=== PATIENT | female | born 1960 | race Caucasian/White ===

== ENCOUNTER → 2017-10-07 16:00 | Outpatient (CLI) | payer BC, SELFPAY ==
--- NOTE | 2017-10-07 10:22 | HPBI_ITS ---
MAMMOGRAPHY - BILATERAL SCREENING REASON FOR EXAM: Female, 57 years old. Routine annual screening examination. PERTINENT HISTORY: Grandmother with breast cancer. TECHNIQUE: Digital bilateral breast marta (3D mammographic acquisition) in the CC and MLO projections. 2-D mediolateral oblique (MLO) and craniocaudad (CC) views of both breasts were obtained. CAD: Full Field Digital Mammography with Computer Added Detection was performed. COMPARISON: Comparison is made with prior study dated October 06, 2016 and October 04, 2015. FINDINGS: Breast Composition: The breasts are almost entirely fatty. There are no dominant masses or suspicious calcifications. No other significant abnormalities are identified. There has been no significant change since the prior study. HPBI/SCREENING MAMM (CAD), BILAT IMPRESSION: Stable bilateral screening mammogram. Yearly follow-up mammogram recommended. (A) ASSESSMENT CATEGORY: BIRADS Category 1: Negative. A letter regarding these results will be sent to the patient by the facility within 30 days. Approximately 10% of breast cancers are not detected by mammography. A normal mammogram should not delay biopsy of a clinically suspicious abnormality. [id number] Electronically Signed: Wally Albrecht MD at 8:14 EST Tel [phone], Service support ,
--- OUTSIDE RECORDS SUMMARY | 2017-11-17 07:39 | XMS RPT_ITS ---
:1960 Author Organization OHIP Care Team Providers Name Role Phone Berhane Diaz Attending Unavailable Berhane Diaz Primary Care Unavailable Monae Blanco Attending Unavailable Berhane Diaz Primary Care Unavailable Monae Blanco Attending Unavailable Berhane Diaz Primary Care Unavailable Patrick Amin Attending Unavailable Berhane Diaz Referring Unavailable Berhane Diaz Primary Care Unavailable Dr. Dewey Driver Attending Unavailable *SELF, REFERRED Referring Unavailable Fermin Delaney Primary Care Unavailable Rakan, Dr. Nunu Leyva Attending Unavailable Neisha, Dr. Dewey Buchanan Referring Unavailable PrattFermin Primary Care Unavailable PROBLEMS PROBLEMS DATE TYPE CONDITION / CODE ATTENDING STATUS SOURCE 11/17/2017 Unknown Z12.31 - Encounter Francis Active [place] for screening [facility] mammogram for Hospital malignant neoplasm Repository of breast / Z12.31(ICD-10) 07/31/2017 Unknown ENCNTR FOR SECURITY SITE SUPERVISOR EXAM Francis Active [facility] (GENERAL) (ROUTINE) [facility] W/O ABN FINDINGS / Hospital Z01.419(ICD-10) Repository 07/31/2017 Unknown ENCOUNTER FOR [facility] Active [place] SCREENING FOR HUMAN [facility] PAPILLOMAVIRUS (HPV) Hospital / Z11.51(ICD-10) Repository 05/21/2017 Unknown ENCOUNTER FOR Berhane Diaz Active [place] SCREENING FOR LIPOID [facility] DISORDERS / Hospital Z13.220(ICD-10) Repository 05/21/2017 Unknown ENCOUNTER FOR JoeBerhane house Active [place] SCREENING FOR [facility] DIABETES MELLITUS / Hospital Z13.1(ICD-10) Repository 05/21/2017 Unknown ANEMIA, UNSPECIFIED JoeBerhane Active [place] / D64.9(ICD-10) [facility] Hospital Repository PROCEDURES PROCEDURES No Procedure Records FoundRESULTS RESULTS URGENT CARE VISIT Observed: 11/11/2017 Status: F Source: [place] RE[place] 12:16 PM [facility] REPOSITORY Now [address] [id number] VISITDate of Service: 10/09/17MR#: [id number] Acct: [id number]: OPHELIA VARMA Rep #: [id number]: 1960 Provider: Patrick Vega/Sex: 57/F [place] [facility] [place]Status: SignedIntakeVital Signs10/09/17 Height 5 ft 1 in10/09/17 Weight: 228 lb10/09/17 Body Mass Index (BMI) 43.0IntakeVisit Reasons: chest congestionInterpreter Required: NoAccompanied by: SelfIs patient in pain?: NoAllergiescefaclor Allergy (Severe, Verified 10/09/17 07:46) Unknownclarithromycin Allergy (Severe, Verified 10/09/17 07:47)UnknownSulfa (Sulfonamide Antibiotics) Allergy (Severe, Verified 10/09/17 07:46)UnknownMedicationsdiphenhydramine 25 mg capsule 25 mg PO ONCE 10/09/17 [History Confirmed 10/09/17]ibuprofen 100 mg tablet PO 10/09/17 [History Confirmed 10/09/17]metronidazole 0.75 % topical gel 1 applic TOPICAL ONCE 10/09/17 [History Confirmed 10/09/17]selenium sulfide 2.5 % shampoo % TOPICAL 10/09/17 [History Confirmed 10/09/17]sumatriptan 100 mg tablet 100 mg PO ONCE 10/09/17 [History Confirmed 10/09/17]topiramate XR 200 mg capsule,extended release 24 hr 200 mg PO ONCE 10/09/17 [History Nbnmzbvky71/22/17]PFSHMedical History ( Reviewed 10/09/17 @ 07:53 by Berkley Clarke)history of uterine ablasion (Acute)Surgical History History of colonoscopy (Acute) Social HistorySmoking Status: Never smokeralcohol intake: neverHPIchest congestion:Details: OPHELIA VARMA, is a 57 F who presents to the office today for cough and nasalcongestion for the past 2 days. Patient is concerned for possible bronchitis or pneumonia asshe has had this in the past. She states that her cough has worsened over the past 2 days andshe feels as if it is in her chest currently. She denies chest pain or shortness of breath.She also denies any hemoptysis and describes her cough as dry and nonproductive. No fever,chills, sweats. No other associated symptoms or alleviating/aggravating factors.ROSConstConstitutional: No chills, fever(s), fatigue, abnormal sleep pattern or headache(s)ENTENT: Positive for nasal discharge and nasal congestion;no ear pain or headache(s)RespRespiratory: Positive for cough Cough: Yes non-productive;no shortness of breath or chest congestionCardioCardiology: No chest pain at rest, chest pain with exertion or shortness of breathSkinSkin: No wounds or lesionsNeuroNeurology: No behavioral changes, confusion or headache(s)PsychPsychiatric: No behavioral changes, No confusion, No abnormal sleep patternEndoEndocrine: No fatigueExamConstGeneral: cooperative, healthy appearingHENMTHead: normocephalic, atraumaticEars: hearing grossly normal bilaterally, TM abnormal retracted bilaterallyNose: nasal discharge clearFace and sinus: face symmetricEyesGeneral: appearance normal, both eyes and all related structuresPupils: PERRLRespEffort AND Inspection: normal respiratory effortAuscultation: Bilateral: Clear to AuscultationCardioRate: regular rateRhythm: regular rhythmHeart Sounds: S1 normal, S2 normalSkinGeneral: no rashes or lesions notedPsychAppearance: grossly normalAssessment AND PlanProblems1. URI, acute J06.9StatusAcutePlanEncouraged to get plenty of rest, drink lots of clear liquids, and use Tylenol or Ibuprofen(unless contraindicated) for fever and comfort. Patient also educated on other symptomaticmanagement techniques. To be seen in 7-10 days if no improvement; sooner if worsening ofsymptoms. Patient advised of potential red flags and when appropriate report to the ED.Patient verbalized understanding all the above.CodingLevel of Care CodeOff vis,new,level 3DiagnosesURI, acute J06.90/ 06/05 1614 <Electronically signed by Patrick SULLIVAN>Date Patrick Amin PACosigner Signature: Date (if applicable)CC: SCREENING MAMM (CAD), Observed: 10/07/2017 Status: F Source: [place] 10:22 AM [facility] RE[facility]ITORY [facility] [address] [place], [place] [address]AHNSKOLDV MAMM (CAD), BILATMR#: [id number] Acct: [id number]: OPHELIA VARMA Rep #: [id number]: 1960 F 57 From: Wally Albrecht MDPCP: Berhane Diaz Status: PRE CLIStudy: SCREENING MAMM (CAD), BILAT Date of Exam: 10/07/17Exam# [id number] Ordering Dr: Monae Blanco MDMAMMOGRAPHY - BILATERAL SCREENINGREASON FOR EXAM: Female, 57 years old. Routine annual screeningexamination.PERTINENT HISTORY: Grandmother with breast cancer.TECHNIQUE: Digital bilateral breast marta (3D mammographic acquisition) inthe CC and MLO projections. 2-D mediolateral oblique (MLO) and craniocaudad(CC) views of both breasts were obtained. CAD: Full Field DigitalMammography with Computer Added Detection was performed.COMPARISON: Comparison is made with prior study dated October 06, 2016and October 04, 2015. FINDINGS:Breast Composition: The breasts are almost entirely fatty.There are no dominant masses or suspicious calcifications.No other significant abnormalities are identified. There has been nosignificant change since the prior study. ORDER #: [id number] HPBI/SCREENING MAMM (CAD), BILATIMPRESSION:Stable bilateral screening mammogram. Yearly follow-up mammogramrecommended. (A) ASSESSMENT CATEGORY:BIRADS Category 1: Negative. A letter regarding these results will besent to the patient by the facility within 30 days.Approximately 10% of breast cancers are not detected by mammography. 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 Electronically Signed Out by LENARD JERRY M.D. Electronically SignedOut By LENARD JERRY MD/[facility] Microscopic Description:Microscopic analysis shows a symmetric, papular proliferation of blandmelanocytes in dermis. Dermal melanocytes mature with increasing depth indermis and show no cytologic atypia. Clinical History:R/O Atypia at congenital nevus. Shave Biopsy. ([facility]) Specimens Submitted As:A: SKIN, RIGHT LOW LATERAL BUTTOCK Gross Description: Received in formalin is a oden-brown piece of skin measuring 3y4n7yl. Thespecimen is inked and embedded in toto.ink/09/02/2017 Performed By: #### D ####Dermatopathology PAP I-G HPV HI Collected: 07/27/2017 Status: F Source: [facility] 12:00 AM [facility] REPOSITORY Order Comment: CYTOLOGY INFORMATION:- CLINICAL INFORMATION: OTHER- DATE LMP/MENOPAUSE: LMP/ NOT GIVEN- COLLECTION VIAL: Thin Prep Vial- SECURITY SITE SUPERVISOR SOURCE: CERVICAL- COLLECTION TECHNIQUE: BRUSH ONLY/ CERVIX BROOM ONLYSpecimen Comment: [id number] Comment: No. of containers..01 ThinPrep Vial TYPE CODE TESTS RESULT OUT OF RANGE REFERENCE UNITS LAB L7400.0800 Normal . DIAGN Comment Result Comment: NEGATIVE FOR INTRAEPITHELIAL LESION AND MALIGNANCY. LAB L7400.0900 Normal . ADEQ Comment Result Comment: Satisfactory for evaluation. Endocervical and/or squamous metaplasticcells (endocervical component) are present. LAB L7400.1400 Normal . PERFORM Comment Result Comment: Kayla Mcmullen, Wash Driller (ASCP) LAB L7400.2575 Normal . TEST Comment METHOD Result Comment: This liquid based ThinPrep(R) pap test was screened withthe use of an image guided system. LAB L7400.2600 Normal . COMM . LAB L7400.2700 Normal . PAPSMR Comment Result Comment: The Pap smear is a screening test designed to aid in thedetection of premalignant and malignant conditions of theuterine cervix. It is not a diagnostic procedure andshould not be used as the sole means of detecting cervicalcancer. Both false-positive and false-negative reports dooccur. LAB L7400.2950 Normal Negative HPV Negative HC,HGH RISK Result Comment: This high-risk HPV test detects thirteen high-risk types(16/18/31/33/35/39/45/51/52/56/58/59/68) withoutdifferentiation.Performed at: - [facility] [id number] Director: Adore Gay MD, Phone: [phone] at:=G - [facility] [address] [id number] Director: Adore Gay MD, Phone: [phone] Performed By: #### L7400.0375 ####[facility] (refer to report for specific site) refer to report for address and phone number CBC W/DIFF, AUTOMATED Collected: 05/15/2017 Status: F Source: [place] 9:01 AM [facility] REPOSITORY TYPE CODE TESTS RESULT OUT OF RANGE REFERENCE UNITS LAB L100.1000 Normal 4.4-11.0 K/mm3 WBC 6.2 LAB L100.1200 Normal 4.2-5.4 M/mm3 RBC 4.25 LAB L100.1300 Low 12.0-15.0 g/dl HGB 11.7 LAB L100.1400 Normal 37-47 % HCT 37.1 LAB L100.1500 Normal 81-99 fL MCV 87.3 LAB L100.1600 Normal 27.0-32.0 pg MCH 27.5 LAB L100.1700 Low 32-36 g/gl MCHC 31.5 LAB L100.1810 High 11.6-14.6 % RDW 15.3 CV LAB L100.1820 High 35.1-43.9 fl RDW 48.5 SD LAB L100.1900 Normal 150-450 K/mm3 PLT 263 LAB L100.2000 Normal 6.2-12.0 fl MPV 11.9 LAB L100.2100 Normal 47-70 % NEUT% 62.6 LAB L100.2200 Normal 19-41 % LY% 28.1 LAB L100.2300 Normal 0-10 % MONO% 5.9 LAB L100.2400 Normal 0-5 % EO% 2.9 LAB L100.2500 Normal 0-1 % BASO% 0.3 LAB L100.2550 Normal 0.0-0.9 % IM 0.200 GRAN % Result Comment: IG% - Immature Granulocytes (promyelocytes, myelocytes andmetamyelocytes) > 1% indicates that a LEFT SHIFT is Present. LAB L100.2620 Normal 2.0-7.7 X10 3/uL Absolute Neut 3.9 LAB L100.2720 Normal 0.83-4.51 X10 3/ul Absolute Lymph 1.75 Performed By: #### L100.0100 ####[facility] [address] [place], [place], [address] LIPID PROFILE Collected: 05/15/2017 Status: F Source: [place] 9:01 AM [facility] REPOSITORY TYPE CODE TESTS RESULT OUT OF RANGE REFERENCE UNITS LAB L501.4900 Normal 200 mg/dL CHOL 161 Result Comment: <200 mg/dL Desirable 200-240 mg/dL Borderline >240 mg/dL High Risk LAB L501.5000 Normal mg/dL TRIG 89 Result Comment: The drugs N-Acetylcysteine and Metamizole may falsely deressthis assay.Serum Triglycerides Reference Interval Normal <150 mg/dL Borderline high 150 - 199 mg/ dL High 200 - 499 mg/dL Very High > ev=323 mg/dL LAB L501.6400 Normal mg/dL HDL 56 Result Comment: The drugs N-Acetylcysteine and Metamizole may falsely deressthis assay. Reference Range HDL <40 mg/dL Low HDL Cholesterol HDL >or=60 mg/dL High HDL Cholesterol LAB L501.6500 Normal 0-130 mg/dL LDL 87 LAB L501.6600 Normal 5-40 mg/dL VLDL 18 Performed By: #### L500.4100, L501.0100, L503.6150, L503.6550 ####[facility] [address] [place], [address] GLUCOSE Collected: 05/15/2017 Status: F Source: [place] 9:01 AM [facility] REPOSITORY TYPE CODE TESTS RESULT OUT OF RANGE REFERENCE UNITS LAB L501.0100 Normal 70-110 mg/dL GLU 94 Performed By: #### L500.4100, L501.0100, L503.6150, L503.6550 ####[facility] [address] [place], [address] IRON Collected: 05/15/2017 Status: F Source: [place] 9:01 AM [facility] REPOSITORY TYPE CODE TESTS RESULT OUT OF RANGE REFERENCE UNITS LAB L503.6150 Low 50-170 ug/dL IRON 49 Performed By: #### L500.4100, L501.0100, L503.6150, L503.6550 ####[facility] [address] [place], [address] FERRITIN Collected: 05/15/2017 Status: F Source: [place] 9:01 AM [facility] REPOSITORY TYPE CODE TESTS RESULT OUT OF RANGE REFERENCE UNITS LAB L503.6550 Normal 8-252 ng/mL FERRITIN 45 Performed By: #### L500.4100, L501.0100, L503.6150, L503.6550 ####[facility] [address] [place], [address] CNCO Observed: 04/14/2017 Status: COMPLETED Source: [place] 12:00 AM [facility] REPOSITORY Letter TextWooVirtua VoorheesDepartment of Obstetrics and [address] [place], [place] [address]Wdaxo: Sasherman Mcgowan [address]052 [facility] [address]Jddf 2016MRN: [id number] ,Due to unforeseen circumstances, there has been a change in the schedule Sangeeta Blanco M.D. Your original appointment scheduled for 07/27/17 hasbeen rescheduled to 07/23/17 at 3:50 p.m. If this is not convenient, pleasegive our office a call at [phone]. I apologize for any inconveniencethis may cause you.Sincerely,Department of Obstetrics and GynecologyFormerly [facility] ALLERGIES ALLERGIES DATE TYPE / CODE NAME / CODE REACTION SEVERITY SOURCE 10/09/2017 Drug Sulfa Unknown [facility] Allergy/4160 (Sulfonamide Hospital 25174(SNOMED Antibiotics)/ Repository CT) [id number](RX NORM) 10/09/2017 Drug cefaclor/F006 Unknown [facility] Allergy/4160 945758(RXNORM Hospital 02167(SNOMED ) Repository CT) 10/09/2017 Drug clarithromyci Unknown [facility] Allergy/4160 n/[id number]( Hospital 24570(SNOMED RXNORM) Repository CT) ENCOUNTERS ENCOUNTERS ADMIT/DISCHARGE ACCOUNT ADMITTING ENCOUNTER LOCATION SOURCE NUMBER CLASS 10/09/2017/10/09/20 [id number] Ambulatory BMSBuilding:Sobia Jim[address] [place] Repository 10/07/2017 [id number] [facility] ing:BI Repository 09/01/2017 [id number] Ambulatory [address] [place] [address] Repository 09/01/2017 [id number] Ambulatory [address] [place] [address] Repository 07/27/2017 [id number] [facility] ing:LABSPEC Repository 05/15/2017 [id number] [facility] ing:BFHLAB Repository PAYERS PAYERS ENCOUNTER GUARANTOR PAYER SUBSCRIBER SOURCE 10/09/2017 Ned Chawla Primary OPHELIA Roslyn [place] [id number] Insurance:ANTHEMPolic STEWARDDOB: [facility] y Number: [id number] [id number] Repository [address]Ino: (330) Date:0810-75-19BE [phone] () [id number], [place] [address]DI: 10/09/2017 Secondary NOT GIVENUNK Tino Insurance:SELF PAY [facility] Number: Effective Repository Date:2017-10-09 10/07/2017 Ned Chawla [facility] Tino [id number] Insurance:ANTHEMPolic STEWARDDOB: [facility] y Number: [id number], [place] [id number] Repository [address]Ouq: 330) Date:2762-97-55WV [phone] (HP) [id number], [place] [address]BL: 10/07/2017 [facility] Tino Insurance:SELF PAY [facility]: Effective Repository Date:2017-07-27 09/01/2017 [facility] STEWARDDOB: Insurance:AnthemPolic STEWARDDOB: Hospitals y Number: [id number] Repository [place] [id number] [place], [place] Date:Plan Name:[place], [place] [id number]: [id number]: (HP) (HP) 09/01/2017 [facility] Insurance:AnthemPolic STEWARDDOB: Hospitals y Number: [id number] Repository [id number] [place] Date:Plan Name:[place], [place] [id number]: (HP) 09/01/2017 [facility] STEWARDDOB: Insurance:AnthemPolic STEWARDDOB: Hospitals y Number: [id number] Repository [place] [id number], [place] Date:Plan Name:[place], [place] [id number]: [id number]: (HP) (HP) 09/01/2017 [facility] Insurance:AnthemPolic STEWARDDOB: Hospitals y Number: [id number] Repository [id number] [place] Date:Plan Name:[place] [id number]: () 07/27/2017 NED BERMUDEZRA Mcgowan Tino [id number] Insurance:ANTHEMPolic STEWARDDOB: [facility] y Number: [id number], [place] [id number] Repository [address]Lpq: (330) Date:5328-75-97NE [phone] () [id number] MORENO [address]ZT: 05/15/2017 NED Jiménez [id number] Insurance:ANTHEMPolic STEWARDDOB: [facility] y Number: [id number], [place] [id number] Repository [address]Fae: (330) Date:3467-27-36WD [phone] () [address]IWNJFBF, [place] [address]QY:
== END ==
PROVIDERS: Family Provider Family Medicine; PCP Family Medicine; Visit Provider Obstetrics & Gynecology
DX: Z12.31 Encounter for screening mammogram for malignant neoplasm of breast (principal)
CPT/HCPCS: 77063; 77067; G0202

== ENCOUNTER 2018-07-31 08:02 | Emergency (ER) | payer OTHER, SELFPAY ==
[2018-07-31 08:03] VITALS: BP 126/69; PULSE 82; RESP 18; TEMP 36.6; O2SAT 98; BMI 42.2
--- NOTE | 2018-07-31 08:30 | ED.VIS.GEN ---
History of Present Illness Chief Complaint: Itching Informant: Patient Onset: Weeks - 2 Context: Gradual Onset Timing: Continuous Quality: itchy Location: started on right forearm, now BUE, abd, chest Current Severity: Moderate Maximum Severity: Moderate Worsened by: nothing Relieved by: benadryl temporarily (itching improves, not rash) Associated Symptoms: none Narrative: Patient has an itchy rash started on her forearm. She states her had poison imtiaz after being in some weeds and at first she thought maybe she had it but states that it looks different and did not respond to hydrocortisone cream that she has been using for about 3 days now. Started around 2 weeks ago. Itchy, no pain, no systemic symptoms. No lesions in her mouth. She cannot recall anything that touched these areas that could have caused this. She is on generic topiramate for migraines, has been on it for a while but the pharmacy told her that she recently was given pills from a different pharmacist in charge owner about 2 or 3 weeks ago, and the pharmacist told her that there is a very slight chance that she could develop a rash as a result. She has not discontinued the medication, as she was told not to do so abruptly. - Past Medical History (1) Migraines Status: Chronic Past Medical History - Allergies and Home Meds Allergies/Adverse Reactions: Allergies cefaclor Allergy (Severe, Verified 07/31/18 08:07) Unknown clarithromycin Allergy (Severe, Verified 07/31/18 08:07) Unknown Sulfa (Sulfonamide Antibiotics) Allergy (Severe, Verified 07/31/18 08:07) Unknown Primary Care Physician: Berhane Diaz MD [Primary Care Provider] - Lives: Spouse/ Significant Other Smoking Status: Never smoker Alcohol: None Drugs: None Review of Systems General: Denies: Chills, Fever Respiratory: Denies: Dyspnea, Cough Gastrointestinal: Denies: Abdominal pain, Nausea, Vomiting, Diarrhea Musculoskeletal: Denies: Myalgias, Arthralgias, Swelling Skin: Reports: Rash. Denies: Abscess, Abrasions, Wounds Physical Exam Vital Signs/Narrative: Vital Signs Temp Pulse Resp BP Pulse Ox 07/31/18 08:03 97.9 F 82 18 126/69 H 98 Inital Vital Signs reviewed: Yes General: Well nourished, Well developed Head: Normocephalic, Atraumatic Eyes: Perrl, EOMI ENT: Moist mucous membranes - Without lesions, No rhinorrhea Neck: Supple, Nontender Skin: Normal color, Rash - Erythematous, almost consistent with coalescent fine urticaria on abdominal and chest herring, but more dry on forearms. No tenderness. No target lesions. No vesicles, drainage or discharge, or bullae. No petechiae/purpura. Neurological: Alert, Oriented x3, Cranial nerves II-XII grossly intact, Normal Strength, Normal Sensation, Normal Gait Psychological: Normal affect Diagnostic/Tx/Re-eval - Medical Decision Making We do not have a true Stringer lamp here. I think fungal infection is less likely given how diffuse it has become. There is a couple areas on her ankles where she has this as well, it looks more similar to the appearance of the rash on her forearms and her abdomen, but it all looks fairly similar. There is a chance it could be contact dermatitis. There is a chance it could be related to the topiramate that she recently had changed to a different pharmacist in charge owner. She is getting a new prescription from a new pharmacist in charge owner 2 days from now, she asked if it would be safe to discontinue her topiramate for today and tomorrow and I think that it would be. She does not take this for seizures. This is not consistent with Richard-River syndrome. I think this looks like a rash that will respond to steroids so we will place her on a taper and have her follow-up with her doctor and she is comfortable with this plan. ED Disposition - Plan for ED Patient: Disposition: Home or Assisted Living Chief Complaint: Itching Diagnosis: Dermatitis Instructions: ED Dermatitis Contact, ED Allergic Reaction General Other Prescriptions: Prednisone 10 mg PO UD #37 tab Referrals: Berhane Diaz MD [Primary Care Provider] - 3-5 Days if not improving
--- NOTE | 2018-07-31 08:35 | ED.DCSUM_ITS ---
History of Present Illness Chief Complaint: Itching Informant: Patient Onset: Weeks - 2 Context: Gradual Onset Timing: Continuous Quality: itchy Location: started on right forearm, now BUE, abd, chest Current Severity: Moderate Maximum Severity: Moderate Worsened by: nothing Relieved by: benadryl temporarily (itching improves, not rash) Associated Symptoms: none Narrative: Patient has an itchy rash started on her forearm. She states her had poison mitiaz after being in some weeds and at first she thought maybe she had it but states that it looks different and did not respond to hydrocortisone cream that she has been using for about 3 days now. Started around 2 weeks ago. Itchy, no pain, no systemic symptoms. No lesions in her mouth. She cannot recall anything that touched these areas that could have caused this. She is on generic topiramate for migraines, has been on it for a while but the pharmacy told her that she recently was given pills from a different sales marketing manager about 2 or 3 weeks ago, and the pharmacist told her that there is a very slight chance that she could develop a rash as a result. She has not discontinued the medication, as she was told not to do so abruptly. - Past Medical History (1) Migraines Status: Chronic Past Medical History - Allergies and Home Meds Allergies/Adverse Reactions: Allergies cefaclor Allergy (Severe, Verified 07/31/18 08:07) Unknown clarithromycin Allergy (Severe, Verified 07/31/18 08:07) Unknown Sulfa (Sulfonamide Antibiotics) Allergy (Severe, Verified 07/31/18 08:07) Unknown Primary Care Physician: Berhane Diaz MD [Primary Care Provider] - Lives: Spouse/ Significant Other Smoking Status: Never smoker Alcohol: None Drugs: None Review of Systems General: Denies: Chills, Fever Respiratory: Denies: Dyspnea, Cough Gastrointestinal: Denies: Abdominal pain, Nausea, Vomiting, Diarrhea Musculoskeletal: Denies: Myalgias, Arthralgias, Swelling Skin: Reports: Rash. Denies: Abscess, Abrasions, Wounds Physical Exam Vital Signs/Narrative: Vital Signs Temp Pulse Resp BP Pulse Ox 07/31/18 08:03 97.9 F 82 18 126/69 H 98 Inital Vital Signs reviewed: Yes General: Well nourished, Well developed Head: Normocephalic, Atraumatic Eyes: Perrl, EOMI ENT: Moist mucous membranes - Without lesions, No rhinorrhea Neck: Supple, Nontender Skin: Normal color, Rash - Erythematous, almost consistent with coalescent fine urticaria on abdominal and chest herring, but more dry on forearms. No tenderness. No target lesions. No vesicles, drainage or discharge, or bullae. No petechiae/purpura. Neurological: Alert, Oriented x3, Cranial nerves II-XII grossly intact, Normal Strength, Normal Sensation, Normal Gait Psychological: Normal affect Diagnostic/Tx/Re-eval - Medical Decision Making We do not have a true Stringer lamp here. I think fungal infection is less likely given how diffuse it has become. There is a couple areas on her ankles where she has this as well, it looks more similar to the appearance of the rash on her forearms and her abdomen, but it all looks fairly similar. There is a chance it could be contact dermatitis. There is a chance it could be related to the topiramate that she recently had changed to a different sales marketing manager. She is getting a new prescription from a new sales marketing manager 2 days from now, she asked if it would be safe to discontinue her topiramate for today and tomorrow and I think that it would be. She does not take this for seizures. This is not consistent with Richard-River syndrome. I think this looks like a rash that will respond to steroids so we will place her on a taper and have her follow-up with her doctor and she is comfortable with this plan. ED Disposition - Plan for ED Patient: Disposition: Home or Assisted Living Chief Complaint: Itching Diagnosis: Dermatitis Instructions: ED Dermatitis Contact, ED Allergic Reaction General Other Prescriptions: Prednisone 10 mg PO UD #37 tab Referrals: Berhane Diaz MD [Primary Care Provider] - 3-5 Days if not improving
== END 2018-07-31 08:47 | disposition home or self-care (01) ==
PROVIDERS: Emergency Provider Emergency Medicine; Family Provider Family Medicine; PCP Family Medicine
DX: L30.9 Dermatitis, unspecified (principal); G43.909 Migraine, unspecified, not intractable, without status migrainosus; Z79.899 Other long term (current) drug therapy
CPT/HCPCS: 99282

== ENCOUNTER → 2018-10-08 07:49 | Outpatient (CLI) | payer OTHER, SELFPAY ==
--- NOTE | 2018-10-08 07:53 | BI_ITS ---
MAMMOGRAPHY - BILATERAL SCREENING REASON FOR EXAM: Female, 58 years old. Routine annual screening examination. PERTINENT HISTORY: Grandmother with breast cancer. TECHNIQUE: Digital bilateral breast marta (3D mammographic acquisition) in the CC and MLO projections. 2-D mediolateral oblique (MLO) and craniocaudad (CC) views of both breasts were obtained. CAD: Full Field Digital Mammography with Computer Added Detection was performed. COMPARISON: Comparison is made with prior study dated October 07, 2017 and October 06, 2016. FINDINGS: Breast Composition: The breasts are almost entirely fatty. There are no dominant masses or suspicious calcifications. No other significant abnormalities are identified. There has been no significant change since the prior study. BI/SCREENING MAMM (CAD), BILAT IMPRESSION: Stable bilateral screening mammogram. Yearly follow-up mammogram recommended. (A) ASSESSMENT CATEGORY: BIRADS Category 1: Negative. A letter regarding these results will be sent to the patient by the facility within 30 days. Approximately 10% of breast cancers are not detected by mammography. A normal mammogram should not delay biopsy of a clinically suspicious abnormality. [id number] Electronically Signed: Wally Albrecht MD at 10:03 EST Tel [phone], Service support ,
== END ==
PROVIDERS: Family Provider Family Medicine; PCP Family Medicine; Referring Provider Obstetrics & Gynecology; Visit Provider Obstetrics & Gynecology
DX: Z12.31 Encounter for screening mammogram for malignant neoplasm of breast (principal)
CPT/HCPCS: 77063; 77067

== ENCOUNTER → 2018-10-26 13:45 | Outpatient (CLI) | payer OTHER, SELFPAY ==
[2018-10-26 15:40] LABS: Absolute Lymphocyte Count 2.36 X10^3/ul (0.83-4.51); Absolute Neutrophil Count 4.3 X10^3/uL (2.0-7.7); Basophil# 0.02 X10^3/uL; Basophil% 0.3 % (0-1); Eosinophil# 0.35 X10^3/uL; Eosinophils% 4.6 % (0-5); Hematocrit 39.9 % (37-47); Hemoglobin 12.3 g/dl (12.0-15.0); Lymphocyte # 2.36 X10^3/ul (4.0); Lymphocyte % 30.8 % (19-41); Mean Corp Hgb Conc 30.8 g/gl (32-36); Mean Corpuscular Hgb 26.9 pg (27.0-32.0); Mean Corpuscular Volume 87.3 fL (81-99); Mean Platelet Vol. 11.3 fl (6.2-12.0); Monocyte# 0.63 X10^3/uL; Monocyte% 8.2 % (0-10); Neutrophil # 4.28 X10^3/uL (2.7-7.7); Platelet Count 282 K/mm3 (150-450); RBC Distribution Width CV 15.2 % (11.6-14.6); RBC Distribution Width SD 48.4 fl (35.1-43.9); Red Blood Count 4.57 M/mm3 (4.2-5.4); White Blood Count 7.7 K/mm3 (4.4-11.0)
[2018-10-26 15:46] LABS: POSITIVE COUNT NO; POSITIVE DIFFERENTIAL NO; POSITIVE MORPHOLOGY NO
[2018-10-26 16:06] LABS: Ferritin 64 ng/mL (8-252); Iron 43 ug/dL (50-170); Thyroid Stim Hormone (TSH) 2.34 uIU/mL (0.358-3.74)
== END ==
PROVIDERS: Family Provider Family Medicine; PCP Family Medicine; Visit Provider Family Medicine
DX: D64.9 Anemia, unspecified (principal); E66.01 Morbid (severe) obesity due to excess calories; R53.83 Other fatigue
CPT/HCPCS: 36415; 82728; 83540; 84443; 85025

== ENCOUNTER → 2019-06-22 11:04 | Outpatient (CLI) | payer OTHER, SELFPAY ==
--- NOTE | 2019-06-22 11:07 | RAD_ITS ---
HISTORY:foot pain started last week, 1-3 mtno injury foot pain started last week, 1-3 mtno injury COMPARISON: None FINDINGS: # of images incl. paperwork: 3 XR Foot Min 3 Views: Left BONE AND JOINTS: No acute fracture or subluxation. SOFT TISSUES: Unremarkable. No radiopaque foreign body. RAD/Foot min 3 Views IMPRESSION: No acute pathology If symptoms persist consider mri for further evaluation if clinically indicated. at 2213 Reported and signed by: Mansi Tavares DO Electronically Signed: Mansi Tavares DO at 22:12 EDT Tel , Service support ,
== END ==
PROVIDERS: Family Provider Family Medicine; PCP Family Medicine; Referring Provider Family Medicine; Visit Provider Family Medicine
DX: M79.672 Pain in left foot (principal)
CPT/HCPCS: 73630

== ENCOUNTER → 2019-10-10 08:17 | Outpatient (CLI) | payer OTHER, SELFPAY ==
[2019-09-19 07:55] VITALS: BMI 42.2
--- NOTE | 2019-10-10 08:18 | BI_ITS ---
MAMMOGRAPHY - BILATERAL SCREENING 3-D TOMOSYNTHESIS REASON FOR EXAM: Female, 59 years old. FM HX PAT GMA 60''S, MAT COUSIN 50''S, HX OF PROGESTERONE USE PERTINENT HISTORY: Paternal grandmother, and maternal cousin with breast cancer.. TECHNIQUE: 2-D mammograms and 3-D Tomosynthesis of the breast (s) were performed. CAD was performed. COMPARISON: 10/08/2018, 10/07/2017, 10/06/2016, 10/04/2015 FINDINGS: The breast composition is almost entirely fat. Scattered benign calcifications are seen. No dense spiculated masses or suspicious microcalcifications are identified. No architectural distortion is identified. There is no skin thickening or retraction. There has been no significant change since the prior study. BI/SCREEN MAMM (CAD) W/KERI BILAT IMPRESSION: No mammographic signs of malignancy. Routine yearly mammograms recommended. ASSESSMENT CATEGORY: BIRADS Category 2: Benign. A letter regarding these results will be sent to the patient by the facility within 30 days. FOLLOW UP RECOMMENDATION: Yearly follow up mammogram recommended. (A) Approximately 10% of breast cancers are not detected by mammography. A normal mammogram should not delay biopsy of a clinically suspicious abnormality. Electronically Signed: Tutu Campuzano MD at 21:14 EST Tel [phone], Service support ,
== END ==
PROVIDERS: Family Provider Family Medicine; PCP Family Medicine; Referring Provider Obstetrics & Gynecology; Visit Provider Obstetrics & Gynecology
DX: Z12.31 Encounter for screening mammogram for malignant neoplasm of breast (principal)
CPT/HCPCS: 77063; 77067

== ENCOUNTER → 2019-11-01 15:07 | Outpatient (CLI) | payer OTHER, SELFPAY ==
[2019-09-19 07:55] VITALS: BMI 42.2
[2019-11-01 17:53] LABS: Absolute Lymphocyte Count 2.54 X10^3/uL (0.83-4.51); Absolute Neutrophil Count 4.5 X10^3/uL (2.0-7.7); Basophil# 0.03 X10^3/uL; Basophil% 0.4 % (0-1); Eosinophil# 0.17 X10^3/uL; Eosinophils% 2.2 % (0-5); Hematocrit 40.3 % (37-47); Hemoglobin 12.5 g/dL (12.0-15.0); Lymphocyte # 2.54 X10^3/ul (4.0); Lymphocyte % 32.6 % (19-41); Mean Corpuscular Hgb 26.3 pg (27.0-32.0); Mean Corpuscular Volume 84.8 fL (81-99); Mean Platelet Vol. 11.5 fl (6.2-12.0); Monocyte# 0.51 X10^3/uL; Monocyte% 6.5 % (0-10); NRBC Flagged by Analyzer 0 % (0-5); Neutrophil # 4.51 X10^3/uL (2.7-7.7); Neutrophil % 57.9 % (47-70); Platelet Count 277 K/mm3 (150-450); RBC Distribution Width CV 16.7 % (11.6-14.6); RBC Distribution Width SD 51.3 fl (35.1-43.9); Red Blood Count 4.75 M/mm3 (4.2-5.4); White Blood Count 7.8 K/mm3 (4.4-11.0)
[2019-11-01 18:12] LABS: Vitamin B12 541 pg/mL (211-911)
[2019-11-01 18:46] LABS: Ferritin 61 ng/mL (8-252); Iron 37 ug/dL (50-170)
== END ==
PROVIDERS: Family Provider Family Medicine; PCP Family Medicine; Visit Provider Family Medicine
DX: D64.9 Anemia, unspecified (principal)
CPT/HCPCS: 36415; 82607; 82728; 83540; 85025

== ENCOUNTER → 2020-08-17 10:45 | Outpatient (CLI) | payer OTHER, SELFPAY ==
[2019-09-19 07:55] VITALS: BMI 42.2
== END ==
PROVIDERS: PCP Family Medicine; Referring Provider Family Medicine; Visit Provider Family Medicine
DX: Z20.828 Contact with and (suspected) exposure to other viral communicable diseases (principal)
CPT/HCPCS: 87635; C9803; U0003

== ENCOUNTER → 2020-10-04 | Outpatient (CLI) | payer OTHER, SELFPAY ==
[2020-09-20 08:50] VITALS: BMI 43.7
== END | disposition home or self-care (01) ==
LOC: LABSPEC 10:44
PROVIDERS: PCP Family Medicine; Referring Provider Family Medicine; Visit Provider Family Medicine
DX: Z03.818 Encounter for observation for suspected exposure to other biological agents ruled out (principal)
CPT/HCPCS: 87635; C9803; U0003

== ENCOUNTER → 2020-10-15 15:24 | Outpatient (CLI) | payer OTHER, SELFPAY ==
[2020-09-20 08:50] VITALS: BMI 43.7
--- NOTE | 2020-10-15 15:42 | BI_ITS ---
MAMMOGRAPHY - BILATERAL SCREENING REASON FOR EXAM: Female, 60 years old. Routine annual screening examination. PERTINENT HISTORY: FAM HX OF PATERNAL GRANDMOTHER @ AGE 60''S Tamp; MAT COUSIN @ AGE LATE 50''S - NO PREV SURG''S - EXTRA LT CC AND LT MLO 2D IMAGES TAKED DUE TO SIZE trauma -- OR TECHNIQUE: Digital bilateral breast keri (3D mammographic acquisition) in the CC and MLO projections. 2-D mediolateral oblique (MLO) and craniocaudad (CC) views of both breasts were obtained. CAD: Full Field Digital Mammography with Computer Added Detection was performed. COMPARISON: 10/10/2019 and 10/08/2018 and 10/07/2017. FINDINGS: Breast Composition: The breasts are almost entirely fatty. There are no dominant masses or suspicious calcifications. No other significant abnormalities are identified. BI/SCREEN MAMM (CAD) W/KERI BILAT IMPRESSION: Stable bilateral screening mammogram. Yearly follow-up mammogram recommended. (A) ASSESSMENT CATEGORY: BIRADS Category 2: Benign. A letter regarding these results will be sent to the patient by the facility within 30 days. Approximately 10% of breast cancers are not detected by mammography. A normal mammogram should not delay biopsy of a clinically suspicious abnormality. [id number] Electronically Signed: Keiry Brooks, at 9:09 EST Tel , Service support ,
--- NOTE | 2020-10-15 15:42 | US_ITS ---
STUDY: THYROID ULTRASOUND REASON FOR EXAM: Female, 60 years old. thyromegaly TECHNIQUE: Ultrasound evaluation of the thyroid was performed with real-time and static quinones-scale imaging. COMPARISON: None. FINDINGS: RIGHT LOBE: The right lobe of the thyroid gland measures 4.5 x 1.5 x 1.6 cm. There is a homogeneous echotexture. Within the right thyroid lobe there are 3 nodules, largest seen within the lower pole measuring 1.6 x 1.4 x 1.3 cm with hypoechoic rim and irregular margins. There is internal and peripheral color flow. Additional 2 hypoechoic/cystic nodules demonstrated measuring 0.7 x 0.6 x 0.5 cm and 0.5 x 0.6 x 0.4 cm noted within the mid upper pole. The margins are regular with no color flow. LEFT LOBE: The left lobe of the thyroid gland measures 3.5 x 1.5 x 1.4 cm. There is a homogeneous echotexture. There are no demonstrated solid, cystic or complex lesions. ISTHMUS: The isthmus measures 0.2 cm. There is early bilateral lateral to the right thyroid gland measuring 0.9 x 0.8 x 0.3 cm. US/Thyroid IMPRESSION: Isoechoic nodules within the right thyroid lobe with morphology favoring benign process. Largest nodule seen within the lower pole measures 1.6 cm with morphology also favoring benign process. However, benign versus malignant processes including follicular adenoma cannot be adequately determined without microscopic evaluation for documentation of stability. If indicated, follow-up recommended with ultrasound in 6-8 months to evaluate stability. Electronically Signed: Gregoria Jennings MD at 3:21 EST , Service support ,
[2020-10-15 17:01] LABS: Thyroid Stim Hormone (TSH) 2.84 uIU/mL (0.358-3.74)
== END ==
PROVIDERS: PCP Family Medicine; Referring Provider Obstetrics & Gynecology; Visit Provider Obstetrics & Gynecology
DX: Z12.31 Encounter for screening mammogram for malignant neoplasm of breast (principal); E01.0 Iodine-deficiency related diffuse (endemic) goiter
CPT/HCPCS: 36415; 76536; 77063; 77067; 84439; 84443

== ENCOUNTER → 2020-10-26 | Outpatient (CLI) | payer OTHER, SELFPAY ==
--- NOTE | 2020-10-26 08:00 | ASPS_PTH ---
PATIENT: OPHELIA VARMA LOC: [facility] U#:[id number] AGE/SX: 60/F ROOM: RE10/26/[address]: Dr. Domenico Henriquez MD : 1960 BED: DIS: 10/26/2020 SPEC #: [id number] RECD: 10/26/20 16:18 STATUS: MACIEJ RELyndon #: [id number] PASTOR: 10/26/20 08:[address]: Domenico Henriquez DEPT: CYTOLOGY RECD BY: Kareem Felix ENTERED: 10/29/20 08:07 SP TYPE: ASPIRATION OTHR DR: Dr. Berhane Diaz MD Tissues: Thyroid gland, NOS Procedures: Special Stain Group II Cytology Other HEADER OPERATION: Right thyroid FNA PRE-OP DIAGNOSIS: Multiple thyroid nodules TISSUE SUBMITTED: Right thyroid slides x6 DIAGNOSIS CYTOLOGY Right thyroid nodule, FNA (smears): Consistent with benign follicular/colloid nodule. Adequate for evaluation. See comment. SJ:grhaam 10/30/2020 COMMENT Correlation with clinical, radiologic findings and appropriate follow up are necessary. CYTOLOGY STUDY Slides are reviewed. CYTOLOGY GROSS Received are six smears labeled with the patient's name and designated per the requisition as right thyroid. Submitted for staining. / graham 10/29/2020 TC:5 CPT: 49428
[2020-10-26 08:14] VITALS: BMI 43.4
== END | disposition home or self-care (01) ==
LOC: LABSPEC 16:35
PROVIDERS: PCP Family Medicine; Referring Provider Surgery; Visit Provider Surgery
DX: E04.2 Nontoxic multinodular goiter (principal)
CPT/HCPCS: 88161; 88313

== ENCOUNTER 2021-02-07 09:44 | Outpatient (RCR) | payer OTHER, SELFPAY ==
[2020-10-26 08:14] VITALS: BMI 43.4
== END 2021-03-26 23:59 ==
LOC: IMMUN 09:44
PROVIDERS: PCP Family Medicine; Referring Provider Family Medicine; Visit Provider Family Medicine
DX: Z23 Encounter for immunization (principal)
CPT/HCPCS: 0001A; 0002A; 91300

== ENCOUNTER → 2021-03-04 07:40 | Outpatient (CLI) | payer OTHER, SELFPAY ==
[2020-10-26 08:14] VITALS: BMI 43.4
--- NOTE | 2021-03-04 08:18 | US_ITS ---
STUDY: ABDOMINAL ULTRASOUND REASON FOR EXAM: Female, 60 years old. Abdominal and back pain TECHNIQUE: Transabdominal ultrasound was performed with real-time and static quinones scale imaging. TECHNICAL QUALITY: Adequate. COMPARISON: None. FINDINGS: Liver: The liver measures 20.2 cm. There is increased echogenicity consistent with fatty infiltration. The bile ducts are within normal limits. There is hepatic color flow. The direction of portal flow is hepatopetal. There is no demonstrated mass lesion. Portal vein measurement: Gallbladder: Normal distended gallbladder. The gallbladder wall measures 3 mm. There is a negative sonographic Cole''s sign. There is no pericholecystic fluid. There are multiple echogenic structures within the gallbladder, consistent with multiple gallstones along with echogenic sludge. One of the gallstones is noted at the neck.. Common Bile Duct (C.B.D.): The common bile duct measures 3 mm. Pancreas: Normal size of the head, body and tail of the pancreas. There is normal echogenicity of the pancreas. There is no demonstrated pancreatic mass or cyst. Spleen: There is splenomegaly. The spleen measures 12.1 cm. Right Kidney: Normal size of the right kidney. The right kidney measures 12.2 x 6.0 x 5.1 cm. Normal renal cortex. The right cortex measures 1.3 cm. There is no demonstrated renal mass or cyst. There is no right hydronephrosis. Left Kidney: Normal size of the left kidney. The left kidney measures 11.1 x 4.8 x 4.3 cm. Normal renal cortex. The left cortex measures 1.3 cm. There is a partially calcified 2.7 cm cyst. There is no left hydronephrosis. Aorta: Tapers normally I.V.C.: The IVC is patent. There is no ascites. US/Abdomen Complete IMPRESSION: Hepatomegaly with diffuse fatty infiltration, no discrete lesion Cholelithiasis but no sonographic evidence of acute cholecystitis Splenomegaly Partially calcified right renal cyst, six-month follow-up recommended to assure stability Electronically Signed: Casey Lopez MD at 10:42 EDT , Service support ,
[2021-03-04 09:14] LABS: Absolute Lymphocyte Count 1.73 X10^3/uL (0.83-4.51); Absolute Neutrophil Count 4.7 X10^3/uL (2.0-7.7); Eosinophil# 0.01 X10^3/uL; Eosinophils% 0.1 % (0-5); Hematocrit 39.1 % (37-47); Hemoglobin 11.9 g/dL (12.0-15.0); Lymphocyte # 1.73 X10^3/ul (0.83-4.51); Lymphocyte % 24.6 % (19-41); Mean Corp Hgb Conc 30.4 g/dL (32-36); Mean Corpuscular Hgb 26.9 pg (27.0-32.0); Mean Corpuscular Volume 88.5 fL (81-99); Mean Platelet Vol. 10.6 fl (6.2-12.0); Monocyte# 0.55 X10^3/uL; Monocyte% 7.8 % (0-10); NRBC Flagged by Analyzer 0 % (0-5); Neutrophil # 4.73 X10^3/uL (2.7-7.7); Neutrophil % 67.4 % (47-70); Platelet Count 261 K/mm3 (150-450); RBC Distribution Width CV 15.8 % (11.6-14.6); RBC Distribution Width SD 51.4 fl (35.1-43.9); Red Blood Count 4.42 M/mm3 (4.2-5.4)
[2021-03-04 09:40] LABS: Anion Gap 4 (5-15); BUN 17 mg/dL (7-18); BUN/Creat Ratio 21.9 RATIO (10-20); Calcium,Total 8.6 mg/dL (8.5-10.1); Chloride 108 mmol/L (98-107); Cholesterol 140 mg/dL (200); Creatinine, Serum 0.78 mg/dL (0.55-1.02); EST Glomerular Filtration Rate 81 mL/min (>60); Est Glom Filt Rate - Afr Amer 97 mL/min (>60); Glucose 131 mg/dL (74-106); High Density Lipoprotein 47 mg/dL; Iron 37 ug/dL (50-170); Potassium 4.1 mmol/L (3.5-5.1); Sodium Level 141 mmol/L (136-145); Triglycerides 65 mg/dL; Very Low Density Lipoprotein 13 mg/dL (5-40)
== END ==
PROVIDERS: PCP Family Medicine; Referring Provider Family Medicine; Visit Provider Family Medicine
DX: R10.13 Epigastric pain (principal); K80.20 Calculus of gallbladder without cholecystitis without obstruction; E04.2 Nontoxic multinodular goiter; D64.9 Anemia, unspecified; Z13.220 Encounter for screening for lipoid disorders
CPT/HCPCS: 36415; 76700; 80048; 80061; 83540; 85025

== ENCOUNTER 2021-04-02 10:35 | Day surgery (SDC) | payer OTHER, SELFPAY ==
[2021-03-21 07:46] VITALS: BMI 43.4
--- NOTE | 2021-03-28 12:59 | EKG12_ITS ---
Test Reason : PREOP Blood Pressure : / mmHG Vent. Rate : 086 BPM Atrial Rate : 086 BPM P-R Int : 176 ms QRS Dur : 088 ms QT Int : 378 ms P-R-T Axes : 047 -34 031 degrees QTc Int : 452 ms Normal sinus rhythm Left axis deviation Voltage criteria for left ventricular hypertrophy Abnormal ECG Confirmed by ILDA JACKSON, MOE ([id number]), map editor SONDRA ENGLE ([id number]) on 03/29/2021 12:16:56 PM Referred By: Domenico Henriquez Confirmed By:MOE GONSALES MD
[2021-04-02] VITALS (7 sets, daily range): BP systolic 117–141; BP diastolic 63–80; PULSE 58–84; RESP 14–16; TEMP 36–37.1; O2SAT 92–99; BMI 48.3
--- NOTE | 2021-04-02 11:01 | PCM.HP.BLA ---
History and Physical Date of Admission: 04/02/21 Intake Visit Reasons: ABDOMINAL PAIN, RECURRENT GALLSTONES, US 03/04 Chief Complaint: gallstones Bilingual Medical Receptionist Required: No Is patient in pain?: No Allergies cefaclor Allergy (Severe, Verified 03/21/21 07:42) Unknown clarithromycin Allergy (Severe, Verified 03/21/21 07:42) Unknown Sulfa (Sulfonamide Antibiotics) Allergy (Severe, Verified 03/21/21 07:42) Unknown Medications ibuprofen 100 mg tablet PO 10/09/17 [History Confirmed 03/21/21] sumatriptan succinate 100 mg tablet 100 mg PO ONCE 10/09/17 [History Confirmed 03/21/21] venlafaxine 75 mg capsule,extended release 24 hr 75 mg PO DAILY #30 cap 10/01/20 [Rx Confirmed 03/21/21] ferrous sulfate 325 mg (65 mg iron) tablet 325 mg PO DAILY 03/21/21 [History Confirmed 03/21/21] Is last menstrual period known: No Post menopausal: Yes Patient : No [facility] Medical History (Updated 03/21/21 @ 07:[address] Domenico Henriquez MD) Anemia Depression Gallstones Gastrointestinal problem History of migraine headaches IBS (irritable bowel syndrome) Multiple thyroid nodules Multiple thyroid nodules Surgical History History of colonoscopy History of endometrial ablation History of wisdom tooth extraction Status post fine needle aspiration (~10/2020) Family History Father Heart disease Hypertension Mother Hypertension Thyroid disorder Social History Smoking Status: Never smoker alcohol intake: never substance use type: does not use caffeine: Yes what type of physical activity do you participate in: walking seatbelt use: always do you feel safe at home: Yes additional social history: Martín [facility] [place] HPI HPI HPI: OPHELIA VARMA, is a 60 F who presents to the office today for surgical consultation regarding episode of severe epigastric right upper quadrant pain. The patient is referred by her primary care physician Dr. Berhane Diaz and a written copy my surgical consult recommendations were returned to him. It is of note that just within the past 6 months I have assisted her with treatment and diagnosis of a benign thyroid nodule. On this occasion however she had eaten [employer] onion rings. She then had onset of severe epigastric pain involving the right upper quadrant radiating to the right flank. Just could not get comfortable. Finally the pain resolved. She then had a updated abdominal ultrasound on March 04. This confirmed a previous known history of multiple gallstones but there was additional 1 with a stone in the neck of the gallbladder. There was no thickening of the gallbladder wall and the common bile duct was normal. On March 04, 2021 her hemoglobin was 11.9 hematocrit 39.1 platelet count 261,000 with a white count of 7000 no shift. Renal function tests were normal. In the past she reminds me that I have seen her for incidental gallstones. At that point the gallstones were identified on a CT scan obtained for other reasons. She was asymptomatic and no treatment was recommended. On this occasion it is much more suspicious that she has had a episode of biliary colic chronic cholecystitis cholelithiasis She has not any previous abdominal surgery ROS General General: No weight change, appetite, fatigue, colon cancer, breast cancer or weakness HEENT HEENT: No difficulty swallowing, eye injury, eye surgery, swollen glands or hoarseness Endo Endocrine: No thyroid disease, diabetes mellitus, thyroid cancer, Hair loss, heat intolerance or cold intolerance Musc Musculoskeletal: No back problems, arthritis, rheumatoid arthritis, gout or joint pain Cardio Cardiovascular: No murmur, pacemaker, heart disease, atrial fibrillation, high blood pressure, heart attack, heart stent, palpitations, shortness of breat with exertion or chest pain Psych Psychiatric: Yes depression; No anxiety or hearing voices Resp Respiratory: No shortness of breath, No sleep apnea, No cough, No COPD, No asthma, No emphysema and No wheezing Gastro Gastrointestinal: No abdominal pain, No nausea or vomiting, No diarrhea, No constipation, No blood in stool, No acid reflux, No hemorrhoids, No ulcers, Yes gallbladder problem and No black,tarry stools [place] Hematologic: No blood thinners, No blood disorders, No bleeding, Yes anemia and No blood clots Neuro Neurologic: No weakness Exam Const General: cooperative, comfortable and no acute distress Nutritional Appearance: obese Orientation: alert and awake [facility] Head: normal to inspection Eyes General: appearance normal, both eyes and all related structures Resp Effort & Inspection: normal respiratory effort Auscultation: clear to auscultation bilaterally Cardio Rate: regular rate Rhythm: regular rhythm GI Inspection: large pannus Palpation: soft and no hepatosplenomegaly Auscultation: normal bowel sounds Musc Cervical Spine: normal cervical lordosis Skin General: no rashes or lesions noted Neuro General: patient alert, patient awake and patient oriented x3 Extrem General: no calf tenderness bilaterally Psych Appearance: grossly normal COVID (Procedure Consent) Procedure Criteria Procedure Criteria: Yes Elective The surgeon/proceduralist and patient have discussed in detail the risk of exposure to and/or potential harm posed by the COVID-19 virus with having a surgery/procedure at this time versus the risk of delaying the surgery/procedure. It is not possible to know either the risk of delaying the surgery or procedure or chance of getting an infection with perfect accuracy, but a joint decision was made between the patient and the surgeon/proceduralist to proceed at this time with the scheduled surgery/procedure as indicated on the consent form. Assessment and Plan Assessment and Plan (1) Cholelithiasis with chronic cholecystitis: Status: Chronic Plan Details Additional Comments: This patient's postprandial episode of severe epigastric pain with right upper quadrant involvement and radiation to the right flank very much consistent with biliary colic, chronic cholecystitis cholelithiasis. The ultrasound confirms a stone within the neck of the gallbladder. I propose for her a laparoscopic cholecystectomy with selective cholangiography. With her present I have demonstrated the technique, benefit, risk, alternatives. I do anticipate cholangiography. She has had an opportunity to ask and have questions answered. I have asked her to stay on a strict low-fat diet until were able to complete the procedure. We will schedule and proceed with the OR timing as scheduling permits. I appreciate the ongoing opportunity of assisting with her surgical care. Copy: Dr. Berhane Henriquez M.D., F.A.C.S. Coding Level of Care Code 23899 Diagnoses Cholelithiasis with chronic cholecystitis K80.10 I have re-examined the patient. There are no clinical changes since date of exam.
--- NOTE | 2021-04-02 11:01 | EX.PCM.DISCH ---
Discharge Instructions Procedure General Surgery Diet Discharge Diet: Light diet - advance as tolerated (if you have questions about your diet instructions, please talk to you doctor.) Activity Discharge Activity: May Not Drive (for 3-5 days or while taking narcotic pain medicine.) May shower in (days): 1 Lifting Restrictions: 10 pounds Dressing / Incision Call your doctor if your incision/area has: Continuous Slow Oozing, Sudden Increased Bleeding, Increased Pain/ Swelling, Increased Redness and Foul Smelling Discharge Call your doctor if you observe: Fever of 101 or Higher Suture Line Care: Avoid Pulling/Pushing and Avoid Pinching/Bending Additional Dressing/Incision Instructions:: Change or remove dressing in 4 days. Leave steri-strips in place for 1 week. Follow Up Care Please Follow Up With: Domenico Henriquez MD When: Call [phone] to make an appointment to be seen in about 10 days. Test Results: Test results from this visit will be discussed in further detail at your follow-up appointment, if applicable. Discharge Plan Admission Attending Provider: Domenico Henriquez Primary Care Provider: Berhane Diaz Discharge Orders/Prescriptions Prescriptions: No Action sumatriptan succinate 100 mg tablet 100 mg PO PRN PRN (Reason: MIGRAINES) RF: 0 ibuprofen 100 mg tablet 100 mg tablet 100 mg PO PRN PRN (Reason: Pain) RF: 0 cetirizine [Zyrtec] 10 mg Tablet 10 mg PO DAILY RF: 0 zinc 50 mg Tablet 50 mg PO DAILY RF: 0 ferrous gluconate 225 mg (27 mg iron) Tablet 225 mg PO QODAY RF: 0 Centrum Silver Women 8 mg iron-400 mcg-300 mcg Tablet 1 tab PO DAILY RF: 0 venlafaxine 75 mg capsule,extended release 24hr 75 mg PO DAILY Qty: 30 RF: 12
[2021-04-02] MEDS: Lactated Ringers 1,000 ML 100 ML IV (11:29)
[2021-04-02] MEDS: Bupivacaine Mpf 0.5% 30 ML VIAL (12:38)
--- NOTE | 2021-04-02 12:40 | GALL_PTH ---
PATIENT: OPHELIA VARMA LOC: [facility] [place] U#:[id number] AGE/SX: 60/F ROOM: RE04/02/[address]: Dr. Domenico Henriquez MD : 1960 BED: DIS: 04/02/2021 SPEC #: [id number] RECD: 04/02/21 14:48 STATUS: MACIEJ SOTOMAYOR #: [id number] PASTOR: 04/02/21 12:[address]: Domenico Henriquez DEPT: SURGICAL PATHOLOGY RECD BY: Munira Nunez ENTERED: 04/03/21 10:38 SP TYPE: GIDEON BILL DR: Dr. Berhane Diaz MD Tissues: Gallbladder, NOS Procedures: Surgery Specimen Level III HEADER OPERATION: Laparoscopic cholecystectomy PRE-OP DIAGNOSIS: Cholelithiasis with chronic cholecystitis TISSUE SUBMITTED: Gallbladder MICROSCOPIC DIAGNOSIS Gallbladder, cholecystectomy: Chronic cholecystitis, cholelithiasis and focal cholesterolosis. Rokitansky-Aschoff sinuses. See comment. SJ:graham 04/04/2021 COMMENT The oden nodule at the fundus is also consistent with involvement by Rokitansky-Aschoff sinus. MICROSCOPIC DESCRIPTION Slides are reviewed. GROSS DESCRIPTION Received is one container labeled with the patient's name and designated gallbladder. The specimen consists of a gallbladder measuring 10 cm in length and up to 4 cm in diameter. The external surface is pink-oden, smooth and glistening for the most part. Focally it is granular, hemorrhagic and contains cautery artifact. The gallbladder contains thick, green-yellow mucoid bile and one ovoid, yellowish-green stone measuring 3.5 cm in greatest dimension. A oden nodule is noted at the fundus measuring 0.9 cm in diameter. The gallbladder wall measures up to 0.2 cm in thickness. A stone is present in the proximal portion of the gallbladder close to the cystic duct area. Cd Reactor Operator Head sections from the gallbladder and the cystic duct including entire oden nodule at the fundus are submitted in two cassettes as follows: 1??gallbladder and cystic duct, 2 - oden nodule at the fundus, entirely submitted. / DEDE:graham 04/03/21 TC:3 CPT: 37800
--- NOTE | 2021-04-02 13:56 | PCM.OPRPT ---
Problems Associated Problem List Diagnoses (1) Cholelithiasis with chronic cholecystitis: Report of Operation Date of Procedure: 04/02/21 Pre-Operative Diagnosis: Chronic cholecystitis cholelithiasis Post-Operative Diagnosis: Same Surgery/Procedure Performed:: Laparoscopic cholecystectomy Description of Surgical Findings:: Timeout informed consent was obtained. 60-year-old female was taken to the operating placed on the table underwent general tracheal intubation esthesia. Clindamycin 900 mg were given intravenously. The abdomen sterilely prepped and draped. 0.5% Marcaine was used as a local anesthetic. Local was instilled. Infraumbilical midline incision was created holding sutures of 0 Vicryl placed direct access was gained to the peritoneum a 10 mm trocar was inserted 10 Villasenor laparoscope inserted the abdomen was insufflated with CO2 to a pressure of 12 mmHg pressure no evidence of any trocar injuries on direct visitation 5 mm ports were placed in the epigastric mid abdomen right lower quadrant the patient was noted to be morbidly obese. The gallbladder was noted to be markedly enlarged with a stone duodenum was attached and had to be carefully dissected free with blunt dissection and sharp dissection were indicated. The infundibular area was dissected free and this was extraordinarily tedious. Did the dissection all the way up on the gallbladder wall identifying the cystic artery and having assured that I had a cystic artery I I secured that with a hemolock clip. The dissection at the portal area was challenging due to the patient's obesity and inflammation. Finally dissected down to the cystic duct. There was a very large stone obstructing the entire lower half of the gallbladder. Was not able to get a cholangiogram having now only the cystic duct remaining I placed 2 Hem-o-ivory clips on the cystic duct and transected it. The gallbladder was then dissected free from the liver bed using electrocautery additional hemolock clips were used for a posterior vessel. Having freed the gallbladder placed in a retrieval bag. The right upper quadrant area was carefully irrigated was carefully inspected all clips appeared to be in good position. Fibrillar was placed in the liver bed. The gallbladder was then removed at the umbilicus slight enlargement of the fascia was required. Is of note that intra-abdominal insufflation was exited through a antiviral valve. Skin the fascia and the like is approximated running 0 Vicryl. Skin edges approximated opted for Monocryl subdermal stitches. Steri-Strips Telfa OpSite dressings applied. Sponge and instrument and needle counts were reported to certainly be correct. Blood loss was minimal. She tolerated the procedure well was taken to recovery room in satisfactory addition without apparent complication. Specimens gallbladder. Drains none. Blood loss minimal. Domenico Henriquez M.D., F.A.C.S. Type of Anesthesia: General and Local Anesthesiologist: Fran Schroeder
== END 2021-04-02 17:50 ==
LOC: SDC 10:39 → AC 10:39
PROVIDERS: PCP Family Medicine; Referring Provider Surgery; Visit Provider Surgery
PROC: (CPT 47610; principal; 2021-04-02 12:20)
DX: K80.10 Calculus of gallbladder with chronic cholecystitis without obstruction (principal); K82.8 Other specified diseases of gallbladder; F32.9 Major depressive disorder, single episode, unspecified; M19.90 Unspecified osteoarthritis, unspecified site; E66.01 Morbid (severe) obesity due to excess calories; Z68.42 Body mass index [BMI] 45.0-49.9, adult; Z79.899 Other long term (current) drug therapy
CPT/HCPCS: 00790; 47562; 88304; 93005; J7120; J2405

== ENCOUNTER → 2021-06-19 06:29 | Outpatient (CLI) | payer OTHER, SELFPAY ==
--- NOTE | 2021-06-19 06:41 | MRI_ITS ---
STUDY: MRI RIGHT WRIST WITHOUT CONTRAST REASON FOR EXAM: Female, 61 years old. OSTEOARTHRITIS,PAIN OVER PISAFORM TECHNIQUE: Standardized fat and water weighted pulse sequences were obtained in all 3 orthogonal planes. COMPARISON: None. FINDINGS: Mild hyperthenar eminence muscle edema/strain (axial images 10 through 14 series 7) with mild soft tissue swelling. Small volume fluid at the pisotriquetral recess. Mild flexor carpi ulnaris peritendinitis. Intact distal radius and ulna. Normal triangular fibrocartilaginous complex (TFCC). Slight ulnar negative variance. Normal carpal bones. Normal radiocarpal, intercarpal and midcarpal articulations. Normal visualized interosseous scapholunate ligament. Normal visualized dorsal (extrinsic) ligaments. Normal visualized volar (extrinsic) ligaments. Minimal extensor carpi ulnaris peritendinitis. Remainder of the extensor tendons unremarkable. Normal flexor tendons. Mild median nerve enlargement with slightly increased T2 signal (one image only; axial image 4 series 7). Normal carpometacarpal articulation of the thumb. Normal second through fifth carpometacarpal articulations. Normal visualized metacarpal bones. MRI/Upper Ext Joint Only(Routine) IMPRESSION: Mild hyperthenar eminence muscle edema/strain Mild flexor carpi ulnaris peritendinitis Small volume pisotriquetral recess fluid Minimal ECU peritendinitis Mild median nerve enlargement with increased signal (possible artifact versus mild neuritis) Electronically Signed: Adeel Good DO at 9:43 EDT Tel , Service support ,
== END ==
PROVIDERS: PCP Family Medicine
DX: M19.031 Primary osteoarthritis, right wrist (principal)
CPT/HCPCS: 73221

== ENCOUNTER → 2021-10-17 07:51 | Outpatient (CLI) | payer OTHER, SELFPAY ==
[2020-10-26 08:14] VITALS: BMI 43.4
--- NOTE | 2021-10-17 07:56 | US_ITS ---
STUDY: THYROID ULTRASOUND REASON FOR EXAM: Female, 61 years old. Multiple thyroid nodules TECHNIQUE: Ultrasound evaluation of the thyroid was performed with real-time and static quinones-scale imaging. COMPARISON: 10/15/2020 FINDINGS: RIGHT LOBE: The right lobe of the thyroid gland measures 4.7 x 1.3 x 1.5 cm. There is a homogeneous echotexture. There are 3 nodules of the right thyroid lobe. A 5 mm TR 1 cyst of the upper right thyroid lobe is stable. Solid isoechoic nodule (TR 3) inferior thyroid lobe measures 16 x 15 x 14 mm, not substantially changed. Nodule was previously biopsied on 11/05/2020 Nearly anechoic solid and cystic nodule (TR 3) of the right mid thyroid lobe measures 7 mm, not substantially changed. LEFT LOBE: The left lobe of the thyroid gland measures 3.8 x 1.6 x 2.4 cm. There is a homogeneous echotexture. There are no demonstrated solid, cystic or complex lesions. ISTHMUS: The isthmus measures 3 mm. The regional lymph nodes are prominent but no dominant sameer mass. US/Thyroid IMPRESSION: 1. Stable thyroid nodules. Dominant nodule the right thyroid lobe previously biopsied. No new or enlarging thyroid nodule. Electronically Signed: Sawyer Ackerman MD (Brooks) at 13:08 EST , Service support ,
--- NOTE | 2021-10-17 07:56 | BI_ITS ---
MAMMOGRAPHY - BILATERAL SCREENING 3-D TOMOSYNTHESIS REASON FOR EXAM: Female, 61 years old. screening PERTINENT HISTORY: No significant family history. TECHNIQUE: 2-D mammograms and 3-D Tomosynthesis of the breast (s) were performed. CAD was performed. COMPARISON: 10/15/2020 FINDINGS: The breast composition is composed of scattered fibroglandular density. Scattered benign calcifications are seen. No dense spiculated masses or suspicious microcalcifications are identified. No architectural distortion is identified. There is no skin thickening or retraction. There has been no significant change since the prior study. BI/SCRN MAMM (CAD)W/KERI BILAT IMPRESSION: No mammographic signs of malignancy. Routine yearly mammograms recommended. ASSESSMENT CATEGORY: BIRADS Category 1: Negative. A letter regarding these results will be sent to the patient by the facility within 30 days. FOLLOW UP RECOMMENDATION: Yearly follow up mammogram recommended. (A) Approximately 10% of breast cancers are not detected by mammography. A normal mammogram should not delay biopsy of a clinically suspicious abnormality. Electronically Signed: Ned Yuan MD at 9:35 EST Tel , Service support ,
[2021-10-22 17:43] LABS: HPV APTIMA, High Risk Negative (Negative)
== END ==
PROVIDERS: PCP Family Medicine; Referring Provider Obstetrics & Gynecology; Visit Provider Obstetrics & Gynecology
DX: E04.2 Nontoxic multinodular goiter (principal); Z12.31 Encounter for screening mammogram for malignant neoplasm of breast; Z12.4 Encounter for screening for malignant neoplasm of cervix
CPT/HCPCS: 76536; 77063; 77067; 87624; 88175; G0145

== ENCOUNTER 2021-10-28 08:00 | Outpatient (RCR) | payer OTHER, SELFPAY ==
--- NOTE | 2021-08-29 16:51 | HP.OTEVAL_ITS ---
Patient's Visit Information OPHELIA VARMA is a 61 year old F, referred to Occupational Therapy by Dr. Timothy Dover MD, with a diagnosis of right wrist excision pisiform and FCU tenotomy. Date of Evaluation: 08/26/21 Occupational Therapist: Stephanie Recio, OTR/Moises, CHT - Subjective This 61 year old female was seen for OT eval with dx of primary osteoarthritis . pt states she struggled for years with wrist pain. pt s/p 2 weeks 5 days from wrist excision of pisiform and FCU tenotomy. pt states she would like to return to her PLOF with ADL and IADls by d/c. - ADLs Kitchen: Chop with knife, Peel fruits & vegetables, Open jars, Lift gallon of milk, Pour from pitcher, Lift saucepan, Take dish out of oven, Load/unload belt maker Household: Vacuum, Sweep/mop, Laundry - ROM Wrist: right 65/65 left 70/65 - Strength Social Media Job Titles: right NT left 50# Lateral Pinch: right NT left 8# Tripod Pinch: right NT left 6# Strength Comments: will test at later date right production checker/pinch - Sensation Thumb: right 2.83 left 2.83 Index: right 2.83 left 2.83 Middle: right 2.83 left 2.83 Ring: right 2.83 left 2.83 Little: right 2.83 left 2.83 - Quick DASH-Disab of Arm,Shoulder& Hand Quick DASH Score: 66.6650 - Goals Goal:100% adherence to protocol: Yes Comment: pisiform excision and FCU tenotomy Goal:ROM equal to unaffected hand: Yes Goal:Social Media Job Titles/Pinch strength at least 75% of unaffected hand: Yes Goal:No pain with affected hand use: Yes Goal:Full use of affected hand in daily activities including: Yes Goal:Decrease scar hypersensitivity: Yes - Rehabilitation General Assessment: pt s/p 2 weeks 5 days from wrist excision of pisiform and FCU tenotomy. pt limited with her ROM and use of right hand while structures are healing-pt would benefit from skilled OT services 1-2 x week for 6 weeks to assist pt in gaining her ROM, strength and returning to her PLOF. pt demo understanding and agree to POC. Rehabilitation Potential: Excellent - Anticipated Interventions A/AAROM/PROM, Strengthening, Scar Care, Desensitization, Sensory Retraining, Modalities, Orthoses, Joint Protection/Energy Conservation, Ergonomic Education, Education re assistive Equipment, Education re Diagnosis, Caregiver Training, Home Program - Visit Plan Frequency: 2-3x /Week Duration: 6 Weeks TEXT: Thank you for the opportunity to evaluate your patient. For Medicare and Medicare HMO plans, please review the plan of care and approve it. It will need to be FAXED BACK to us at [phone] for Medicare purposes. Please let me know if there are questions or concerns regarding this plan of care. Physician Signature: Date:
--- NOTE | 2021-09-10 08:27 | HP.OTREVAL ---
Dr. Timothy Dover MD, It has been my pleasure to treat OPHELIA VARMA over the last 4 visits for right wrist excision pisiform and FCU tenotomy. Please see the progress note below for an update on the occupational therapy plan of care! Subjective: pt arrives 4 weeks and 2 days s/p from pisiform and FCU tenotomy Objective/Function: pt demo good chandra. of tx. wrist ROM 70/60. right caddymaster 50#. pt demo with hypertrophic scar and is sensitive to touch. wrist scar appears red - advised pt to go with elastomer every other night - pt is making great gains with her ROM and strength- pt has returned to performing 80% of her ADls at this time IND. Plan Frequency: 1-2x /Week Duration: 2 Weeks Goals - Goals Patient Goals: Regain Mobility, Use Hand/Wrist/Arm Normally Again Goal:100% adherence to protocol: Yes Goal:ROM equal to unaffected hand: Yes Goal:Seed Analysis Laboratory Assistant/Pinch strength at least 75% of unaffected hand: Yes Goal:No pain with affected hand use: Yes Goal:Full use of affected hand in daily activities including: Yes Goal:Decrease scar hypersensitivity: Yes Anticipated Interventions Anticipated Interventions: A/AAROM/PROM, Strengthening, Scar Care, Desensitization, Sensory Retraining, Modalities, Orthoses, Joint Protection/Energy Conservation, Ergonomic Education, Education re assistive Equipment, Education re Diagnosis, Caregiver Training, Home Program Please do not hesitate to contact me at [phone] by phone or if you have questions or concerns regarding this new plan of care! Sincerely, Stephanie Recio, OTR/L, CHT
--- NOTE | 2021-09-19 08:35 | OTREVAL_ITS ---
Dr. Timothy Dover MD, It has been my pleasure to treat OPHELIA VARMA over the last 7 visits for right wrist excision pisiform and FCU tenotomy. Please see the progress note below for an update on the occupational therapy plan of care! Subjective: pt arrives to session states she has some pain at times with motion- but states she does have to stop meal prep- due to weakness and pain- does not stop her from bathing/dressing/ and cleaning- pt states she does rub her hand more due to tingling along her LF (ulnar nerve distribution) Objective/Function: pt demo a increase in right clam grower strength 55# increase from unable left is 50#. right lateral pinch 4# left 8#. right tripod pinch 4# left 6#. wrist ROM 75/65. pt has made great gains with her ROM and strength-pt has met 80% of her goals and could cont. with HEP if you feel this is appropriate. Plan Frequency: 1-2x /Week Duration: 1 Week Plan: return to for possible d/c Goals - Goals Patient Goals: Regain Mobility, Use Hand/Wrist/Arm Normally Again Goal:100% adherence to protocol: Yes Goal:ROM equal to unaffected hand: Yes Goal:Personal Clothing Laundry Aide/Pinch strength at least 75% of unaffected hand: Yes Goal:No pain with affected hand use: Yes Goal:Full use of affected hand in daily activities including: Yes Goal:Decrease scar hypersensitivity: Yes Anticipated Interventions Anticipated Interventions: A/AAROM/PROM, Strengthening, Scar Care, Desensitization, Sensory Retraining, Modalities, Orthoses, Joint Protection/Energy Conservation, Ergonomic Education, Education re assistive Equipment, Education re Diagnosis, Caregiver Training, Home Program Please do not hesitate to contact me at [phone] by phone or if you have questions or concerns regarding this new plan of care! Sincerely, Stephanie Recio, OTR/L, CHT
--- NOTE | 2021-11-18 15:46 | HP.OT.NRP ---
OPHELIA VARMA was seen in my office for initial evaluation on 08/26/21. The following Plan of Care was established for this patient: Initial Frequency: 1-2x /Week Initial Duration: 1 Week Plan: cont US , cont desensitizing and strengthening Anticipated Interventions: A/AAROM/PROM, Strengthening, Scar Care, Desensitization, Sensory Retraining, Modalities, Orthoses, Joint Protection/Energy Conservation, Ergonomic Education, Education re assistive Equipment, Education re Diagnosis, Caregiver Training, Home Program This patient was last seen in our office 10/28/21. Pertinent comments regarding their Occupational therapy will appear below: pt called to let therapy know Dr. bernardo/tyler pt from therapy- pt is happy with her progress since her wrist sx. At this point I will be discontinuing this patient from occupational therapy. I would be happy to see this patient again in the future if found appropriate by the physician. Thank you! Stephanie Recio, OTR/L, CHT
== END 2021-10-28 19:00 | disposition home or self-care (01) ==
LOC: OT 08:00
PROVIDERS: PCP Family Medicine; Referring Provider Orthopaedic Surgery Hand Surgery; Visit Provider Orthopaedic Surgery Hand Surgery
DX: M19.031 Primary osteoarthritis, right wrist (principal); Z98.890 Other specified postprocedural states
CPT/HCPCS: 97035; 97110; 97140; 97166; 97530

== ENCOUNTER 2022-09-09 08:35 | Outpatient (CLI) | payer OTHER, SELFPAY ==
[2022-09-09 12:12] LABS: Absolute Lymphocyte Count 1.73 X10^3/uL (0.83-4.51); Absolute Neutrophil Count 4.7 X10^3/uL (2.0-7.7); Eosinophil# 0.01 X10^3/uL; Eosinophils% 0.1 % (0-5); Hematocrit 41.6 % (37-47); Hemoglobin 12.7 g/dL (12.0-15.0); Lymphocyte # 1.73 X10^3/ul (0.83-4.51); Lymphocyte % 24.9 % (19-41); Mean Corp Hgb Conc 30.5 g/dL (32-36); Mean Corpuscular Hgb 27.3 pg (27.0-32.0); Mean Corpuscular Volume 89.5 fL (81-99); Mean Platelet Vol. 11.5 fl (6.2-12.0); Monocyte# 0.45 X10^3/uL; Monocyte% 6.5 % (0-10); NRBC Flagged by Analyzer 0 % (0-5); Neutrophil # 4.73 X10^3/uL (2.7-7.7); Neutrophil % 67.9 % (47-70); Platelet Count 283 K/mm3 (150-450); RBC Distribution Width CV 15.2 % (11.6-14.6); RBC Distribution Width SD 49.6 fl (35.1-43.9); Red Blood Count 4.65 M/mm3 (4.2-5.4)
[2022-09-09 12:56] LABS: Anion Gap 5 (5-15); BUN 15 mg/dL (7-18); BUN/Creat Ratio 17.7 RATIO (10-20); Calcium,Total 9.4 mg/dL (8.5-10.1); Chloride 106 mmol/L (98-107); Cholesterol 162 mg/dL (200); Creatinine, Serum 0.85 mg/dL (0.55-1.02); EST Glomerular Filtration Rate 73 mL/min (>60); Est Glom Filt Rate - Afr Amer 88 mL/min (>60); Glucose 121 mg/dL (74-106); High Density Lipoprotein 51 mg/dL; Iron 43 ug/dL (50-170); Sodium Level 140 mmol/L (136-145); T4 Free Direct 0.93 ng/dL (0.76-1.46); Thyroid Stim Hormone (TSH) 2.45 uIU/mL (0.358-3.74); Triglycerides 72 mg/dL; Very Low Density Lipoprotein 14 mg/dL (5-40)
== END 2022-09-09 23:59 | disposition home or self-care (01) ==
PROVIDERS: PCP Family Medicine; Visit Provider Family Medicine
DX: E04.2 Nontoxic multinodular goiter (principal); D64.9 Anemia, unspecified; Z13.220 Encounter for screening for lipoid disorders
CPT/HCPCS: 36415; 80048; 80061; 83540; 84439; 84443; 85025

== ENCOUNTER 2022-10-24 09:50 | Outpatient (CLI) | payer OTHER, SELFPAY ==
--- NOTE | 2022-10-24 09:52 | BI_ITS ---
MAMMOGRAPHY - BILATERAL SCREENING REASON FOR EXAM: Female, 62 years old. Routine annual screening examination. PERTINENT HISTORY: Grandmother with breast cancer. TECHNIQUE: Digital bilateral breast keri (3D mammographic acquisition) in the CC and MLO projections. 2-D mediolateral oblique (MLO) and craniocaudad (CC) views of both breasts were obtained. CAD: Full Field Digital Mammography with Computer Added Detection was performed. COMPARISON: Comparison is made with prior study dated 10/17/2021 and 10/15/2020. FINDINGS: Breast Composition: The breasts are almost entirely fatty. There are no dominant masses or suspicious calcifications. No other significant abnormalities are identified. There has been no significant change since the prior study. BI/SCRN MAMM (CAD)W/KERI BILAT IMPRESSION: Stable bilateral screening mammogram. Yearly follow-up mammogram recommended. (A) ASSESSMENT CATEGORY: BIRADS Category 1: Negative. A letter regarding these results will be sent to the patient by the facility within 30 days. Approximately 10% of breast cancers are not detected by mammography. A normal mammogram should not delay biopsy of a clinically suspicious abnormality. [id number] Electronically Signed: Wally Albrecht MD at 12:04 EST ,
[2022-10-30 21:52] LABS: HPV APTIMA, High Risk Negative (Negative)
== END 2022-10-24 23:59 | disposition home or self-care (01) ==
LOC: OPBI 09:51
PROVIDERS: PCP Family Medicine; Referring Provider Obstetrics & Gynecology; Visit Provider Obstetrics & Gynecology
DX: Z12.31 Encounter for screening mammogram for malignant neoplasm of breast (principal); Z80.3 Family history of malignant neoplasm of breast; Z12.4 Encounter for screening for malignant neoplasm of cervix
CPT/HCPCS: 77063; 77067; 87624; 88175; G0145

== ENCOUNTER → 2023-09-07 | Outpatient (CLI) | payer OTHER, SELFPAY ==
[2023-09-07 07:39] LABS: Absolute Lymphocyte Count 2.14 X10^3/uL (0.83-4.51); Absolute Neutrophil Count 3.9 X10^3/uL (2.0-7.7); Eosinophil# 0.01 X10^3/uL; Eosinophils% 0.2 % (0-5); Hematocrit 41.4 % (37-47); Hemoglobin 12.8 g/dL (12.0-15.0); Lymphocyte # 2.14 X10^3/ul (0.83-4.51); Lymphocyte % 32.9 % (19-41); Mean Corp Hgb Conc 30.9 g/dL (32-36); Mean Corpuscular Volume 87.3 fL (81-99); Mean Platelet Vol. 11.1 fl (6.2-12.0); Monocyte# 0.45 X10^3/uL; Monocyte% 6.9 % (0-10); NRBC Flagged by Analyzer 0 % (0-5); Neutrophil % 59.8 % (47-70); Platelet Count 259 K/mm3 (150-450); RBC Distribution Width CV 15.1 % (11.6-14.6); RBC Distribution Width SD 48.9 fl (35.1-43.9); Red Blood Count 4.74 M/mm3 (4.2-5.4); White Blood Count 6.5 K/mm3 (4.4-11.0)
[2023-09-07 08:11] LABS: ALB/GLOB Ratio 0.8 RATIO (0.9-2.4); AST(SGOT) 18 U/L (15-37); Alanine Aminotransfer ALT/SGPT 25 U/L (13-56); Albumin, Serum 3.5 g/dL (3.2-5.0); Alkaline Phosphatase 107 U/L (45-117); Anion Gap 8 (5-15); BUN 15 mg/dL (7-18); BUN/Creat Ratio 16.3 RATIO (10-20); Calcium,Total 9.4 mg/dL (8.5-10.1); Chloride 106 mmol/L (98-107); Cholesterol 163 mg/dL (200); Creatinine, Serum 0.92 mg/dL (0.55-1.02); EST Glomerular Filtration Rate 66 mL/min (>60); Est Glom Filt Rate - Afr Amer 80 mL/min (>60); Globulin 4.5 g/dL (2.2-4.2); Glucose 131 mg/dL (74-106); High Density Lipoprotein 55 mg/dL; Potassium 4.2 mmol/L (3.5-5.1); Sodium Level 142 mmol/L (136-145); Thyroid Stim Hormone (TSH) 3.69 uIU/mL (0.358-3.74); Triglycerides 66 mg/dL; Very Low Density Lipoprotein 13 mg/dL (5-40)
[2023-09-07 08:41] LABS: Hemoglobin A1c 5.7 % (3.8-5.6)
== END | disposition home or self-care (01) ==
LOC: LAB 07:12
PROVIDERS: PCP Family Medicine; Referring Provider Family Medicine; Visit Provider Family Medicine
DX: Z13.228 Encounter for screening for other metabolic disorders (principal); Z13.220 Encounter for screening for lipoid disorders; Z13.0 Encounter for screening for diseases of the blood and blood-forming organs and certain disorders involving the immune mechanism; Z13.1 Encounter for screening for diabetes mellitus
CPT/HCPCS: 36415; 80053; 80061; 83036; 84443; 85025

== ENCOUNTER → 2023-09-17 | Outpatient (CLI) | payer OTHER, SELFPAY ==
[2023-09-17 15:53] LABS: Free T3 2.2 pg/mL (2.18-3.98); T4 Free Direct 0.85 ng/dL (0.76-1.46); Thyroid Stim Hormone (TSH) 2.12 uIU/mL (0.358-3.74)
[2023-09-22 08:11] LABS: Anti-Thyroglobulin AB < 1.0 IU/mL (0.0-0.9); Thyroglobulin, Serum Qt. 11.2 ng/mL (1.5-38.5); Thyroid Peroxidase AB 10 IU/mL (0-34)
== END | disposition home or self-care (01) ==
LOC: MTLAB 11:35
PROVIDERS: PCP Family Medicine; Referring Provider Family Medicine; Visit Provider Family Medicine
DX: R79.89 Other specified abnormal findings of blood chemistry (principal)
CPT/HCPCS: 36415; 84432; 84439; 84443; 84481; 86376; 86800

== ENCOUNTER → 2023-10-29 | Outpatient (CLI) | payer OTHER, SELFPAY ==
--- NOTE | 2023-10-29 08:03 | BI_ITS ---
MAMMOGRAPHY - BILATERAL SCREENING REASON FOR EXAM: Female, 63 years old. Routine annual screening examination. PERTINENT HISTORY: Grandmother with breast cancer. TECHNIQUE: Digital bilateral breast keri (3D mammographic acquisition) in the CC and MLO projections. 2-D mediolateral oblique (MLO) and craniocaudad (CC) views of both breasts were obtained. CAD: Full Field Digital Mammography with Computer Added Detection was performed. COMPARISON: Comparison is made with prior study dated October 24, 2022 and October 17, 2021. FINDINGS: Breast Composition: The breasts are almost entirely fatty. There are no dominant masses or suspicious calcifications. No other significant abnormalities are identified. There has been no significant change since the prior study. BI/SCRN MAMM (CAD)W/KERI BILAT IMPRESSION: Stable bilateral screening mammogram. Yearly follow-up mammogram recommended. (A) ASSESSMENT CATEGORY: BIRADS Category 1: Negative. A letter regarding these results will be sent to the patient by the facility within 30 days. Approximately 10% of breast cancers are not detected by mammography. A normal mammogram should not delay biopsy of a clinically suspicious abnormality. [id number] Electronically Signed: Wally Albrecht MD at 9:46 EST ,
--- OUTSIDE RECORDS SUMMARY | 2023-10-29 08:05 | XMS RPT_ITS | CCD ---
Author Name Unknown Address [address] [place] [address] Organization [facility] Care Team Providers Care Rug Cutter Name Role Phone Monae Blanco MD Unavailable [phone] MONAE BLANCO Unavailable Unavailable Dewayne Driver Unavailable Unavailable *SELF, REFERRED Unavailable Unavailable Fermin Delaney Unavailable Unavailable Honda, Autumn Shuji Unavailable Unavailable Dewayne Driver Unavailable Unavailable Fermin Delaney Unavailable Unavailable Allergies Allergy Classification Reported Allergen(s) Allergy Type Date of Onset Reaction(s) Facility (2 sources) cefaclor; Translations: [CEFACLOR] Drug Allergy 6 [facility] (2 sources) clarithromycin; Translations: [CLARITHROMYCIN] Drug Allergy 0 [facility] (1 source) Sulfonamides (Antibiotic); Translations: [SULFA (SULFONAMIDE ANTIBIOTICS)] Propensity to adverse reactions to drug (disorder) 6 [facility] Repository Medications Completed/Discontinued Medications Medication Drug Class(es) Dates Sig (Normalized) Sig (Original) diphenhydrAMINE hydrochloride 25 mg oral tablet (1 source) Histamine-1 Receptor Antagonist Start: 05-25-2017 DIPHENHYDRAMINE HCL 25 MG TABS DIPHENHYDRAMINE HCL [id number] Nolan Hyman FLUTICASONE PROPIONATE SUSP (1 source) Corticosteroid Start: 05-25-2017 FLUTICASONE PROPIONATE SUSP as needed FLUTICASONE PROPIONATE SUSP [id number] Nolan Hyman IBUPROFEN CAPS (1 source) Nonsteroidal Anti-inflammatory Drug Start: 05-25-2017 ADVIL CAPS as needed IBUPROFEN CAPS [id number] Nolan Hyman metroNIDAZOLE 7.5 mg/ml topical cream (1 source) Nitroimidazole Antimicrobial Start: 05-25-2017 METROCREAM 0.75 % CREA daily METRONIDAZOLE [id number] Kvngevette Randi Hyman omeprazole 10 mg granules for oral suspension (1 source) Proton Pump Inhibitor Start: 05-25-2017 PRILOSEC 10 MG PACK as needed OMEPRAZOLE MAGNESIUM [id number] Kvngevette Randi Hyman SELENIUM SULFIDE LOTN (1 source) Start: 05-25-2017 RA DANDRUFF SHAMPOO LOTN face wash 2-3 times per week SELENIUM SULFIDE LOTN [id number] Kvngevette Randi yHman SUMAtriptan 100 mg oral tablet (1 source) Serotonin-1b and Serotonin-1d Receptor Agonist Start: 05-25-2017 SUMATRIPTAN SUCCINATE 100 MG TABS as needed SUMATRIPTAN SUCCINATE [id number] Nolan Hyman topiramate 200 mg oral tablet (1 source) Anti-epileptic Agent Start: 05-25-2017 take 1 tablet by mouth once daily TOPIRAMATE 200 MG TABS One tablet by mouth daily TOPIRAMATE [id number] Nolan Hyman Problems Active Problems Problem Classification Problem Date Documented Date Episodic/Chronic Unclassified (1 source) Body mass index (BMI) 40.0-44.9, adult; Translations: [Body mass index (BMI) 40.0-44.9, adult] Onset: 07-27-2017 07-27-2017 Chronic Unclassified (1 source) Screening mammography ; Translations: [Encounter for screening mammogram for malignant neoplasm of breast] Onset: 07-27-2017 07-27-2017 Unclassified (1 source) Screening for malignant neoplasm of cervix ; Translations: [Encounter for screening for malignant neoplasm of cervix] Onset: 07-27-2017 07-27-2017 Unclassified (1 source) Gynecologic examination ; Translations: [Encounter for gynecological examination (general) (routine) without abnormal findings] Onset: 07-27-2017 07-27-2017 Unclassified (1 source) Unknown / UNK(Unknown) Onset: 07-28-2016 Past or Other Problems Problem Classification Problem Date Documented Date Episodic/Chronic Immunizations and screening for infectious disease (1 source) Encounter for screening for human papillomavirus (HPV); Translations: [Encounter for screening for human papillomavirus (HPV)] Onset: 07-27-2017 07-27-2017 Episodic Results Test Name Value Interpretation Reference Range Facil ity Vital Signs Date Time Vital Sign Value Performing Clinician Geoffrey harris 07-27-2017 08:53-0400 BMI (Body Mass Index) 43.76 kg/m2 Monae Blanco MD [facility] 07-27-2017 08:53-0400 Body Temperature 98.1 [degF] Monae Blanco MD [facility] 07-27-2017 08:53-0400 BP Diastolic 84 mm[Hg] Monae Blanco MD [facility] 07-27-2017 08:53-0400 BP Systolic 134 mm[Hg] Monae Blanco MD [facility] 07-27-2017 08:53-0400 Height 154.94 cm Monae Blanco MD [facility] 07-27-2017 08:53-0400 Pulse (Heart Rate) 88 /min Monae Blanco MD [facility] 07-27-2017 08:53-0400 Weight 105.05 kg Monae Blanco MD [facility] Encounters Encounter Date Encounter Type Care Provider Facility Start: 09-01-2017 Ambulatory Dewayne Dewey Driver Facilit [id number] Start: 09-01-2017 Ambulatory Autumn Jesuseric [id number] Start: 07-28-2016 End: 07-29-2016 Ambulatory MONAE BLANCO [facility] Plan of Treatment Date Care Activity Detail Author Start: 07-27-2017 End: 07-27-2017 Mammogram, screening Mammogram, Screening, both breasts [facility] Start: 07-27-2017 End: 07-27-2017 WhyWeight WhyWeight [facility] Nutrition Services, [address] [place], [address] [facility] Payers Date Payer Category Payer Policy ID Unknown [id number] Summary Purpose Family History No Family History Records FoundNo Family History Records Found Advance Directives No Advanced Directives Records FoundNo Advanced Directives Records Found Additional Source Comments INFORMATION SOURCE (unrecogn ized section and content) DATE CREATED AUTHOR AUTHOR'S ORGANIZ ATION 04/22/2018 [facility] FOR RECORDS PERTAINING TO PATIENTS WHO ARE OR HAVE BEEN ENROLLED IN A CHEMICAL DEPENDENCY/SUBSTANCEABUSE PROGRAM, SOME INFORMATION MAY BE OMITTED. This clinical summary was aggregated from multiple sources. Caution should be exercised in using it in the provision of clinical care. This summary normalizes information from multiple sources, and as a consequence, information in this document may materially change the coding, format and clinical context of patient data. In addition, data may be omitted in some cases. CLINICAL DECISIONS SHOULD BE BASED ON THE PRIMARY CLINICAL RECORDS. [facility] [employer] provides no warranty or guarantee of the accuracy or completeness of information in this document.
== END | disposition home or self-care (01) ==
LOC: OPBI 08:02
PROVIDERS: Referring Provider Obstetrics & Gynecology; Visit Provider Obstetrics & Gynecology
DX: Z12.31 Encounter for screening mammogram for malignant neoplasm of breast (principal); Z80.3 Family history of malignant neoplasm of breast
CPT/HCPCS: 77063; 77067

== ENCOUNTER 2024-06-11 08:28 | Emergency (ER) | payer OTHER, SELFPAY ==
[2024-06-11 08:29] VITALS: BP 176/85; PULSE 78; RESP 18; TEMP 36.6; O2SAT 100; BMI 45.3
--- NOTE | 2024-06-11 08:57 | VDLE_ITS ---
Reason For Study: RLE PAIN RIGHT GSV is normal. CFV is compressible, spontaneous, phasic, competent and demonstrates normal augmentation. FV is compressible, spontaneous, phasic, competent and demonstrates normal augmentation. POP V is compressible, spontaneous, phasic, competent and demonstrates normal augmentation. T/P Trunk is compressible. PTV is compressible. RT PerV is compressible. Procedure This is a venous duplex using B-mode, color flow and spectral Doppler. Exam performed portable in ED. A preliminary report was called and/or faxed to ED @ 10:05 AM. VL/Venous Duplex US, Unilateral Interpretation Summary Deep veins of the right lower extremity are patent and compressible segmentally . There is no evidence of right lower extremity deep vein thrombosis. Valvular competence tavo ears intact within the proximal deep venous system on the right . The right great saphenous vein a ppears patent and compressible segmentally. Ordering Physician: Art Thomas Referring Physician: Sherri Cooper Performed By: Libertad Ibrahim, VENUS, RVT
--- NOTE | 2024-06-11 08:57 | ED.VIS.BACK ---
HPI History of Present Illness Chief Complaint: Back Narrative Narrative: [facility] for [facility] out D[facility]. She relates history that she has been having low back pain for about a week. She went to the [facility] and was prescribed a muscle relaxer and prednisone. However, as the pain goes down her right leg, they have had recent travel, and the provider at the [facility] thought maybe her right leg was more swollen. Patient denies any change in color to the leg, but pain below the knee mainly diffusely throughout her right calf. She is having problems with her sciatica but denies any medial thigh pain. No chest pain or shortness of breath. Essentially, she states she is here for rule out DVT of her right lower extremity. [facility] Medical History Wears glasses Arthritis Back pain History of IBS Heartburn Depression Gallstones Multiple thyroid nodules Multiple thyroid nodules IBS (irritable bowel syndrome) History of migraine headaches Gastrointestinal problem Anemia Home Medications ?Medication ?Instructions ?Recorded ?Last Taken ?Type ibuprofen 100 mg tablet (Advil) 100 mg PO PRN PRN Pain 10/09/17 Unknown History zokkhsbj-zhpx-odmh 8 mg-folic 400 1 tab PO DAILY 03/26/21 Unknown History mcg-K 50 mcg-lutein 300 mcg tablet (Centrum Silver Women) zinc 50 mg tablet 50 mg PO DAILY 03/26/21 Unknown History clobetasol 0.05 % topical cream 1 applic topical DAILY 10/17/21 Unknown History cetirizine 10 mg tablet (Zyrtec) 10 mg PO DAILY PRN 10/29/23 Unknown History triamcinolone acetonide 0.1 % 1 applic topical DAILY PRN 10/29/23 Unknown History topical cream sumatriptan succinate 100 mg tablet See Rx Instructions .Route 11/30/23 Unknown Rx .COMPLEX #9 ea venlafaxine 75 mg capsule,extended 75 mg PO DAILY #90 caps 02/11/24 Unknown Rx release 24 hr cyclobenzaprine 7.5 mg tablet 7.5 mg PO QHS PRN muscle spasm #20 06/11/24 Unknown Rx tabs prednisone 20 mg tablet 40 mg (2 x 20 mg) PO DAILY #10 tabs 06/11/24 Unknown Rx Allergy/AdvReac Type Severity Reaction Status Date / Time cefaclor Allergy Severe Unknown Verified 06/11/24 08:31 clarithromycin Allergy Severe Unknown Verified 06/11/24 08:31 Sulfa (Sulfonamide Allergy Severe Unknown Verified 06/11/24 08:31 Antibiotics) topiramate (From Topamax) Allergy Rash Verified 06/11/24 08:31 Family History Father Heart disease Hypertension Mother Hypertension Thyroid disorder Dementia Surgical History History of surgery on right wrist History of cholecystectomy (~03/2021) History of wisdom tooth extraction Status post fine needle aspiration (~10/2020) History of endometrial ablation History of colonoscopy Social History Smoking Status: Never smoker alcohol intake: never substance use type: does not use caffeine: Yes what type of physical activity do you participate in: none seatbelt use: always do you feel safe at home: Yes additional social history: Martín ALCANTARA ROS ED ROS Narrative Patient complains of right-sided diffuse calf pain. No chest pain, no shortness of breath. Slight nausea secondary to pain but no vomiting. EXAM Physical Exam Narrative Exam Narrative: Afebrile. Vital signs noted. Nontoxic-appearing. Regular rate and rhythm. Lungs clear to auscultation bilaterally. Abdomen soft nontender. Positive bowel sounds. Inspection of the right lower extremity reveals no evidence of erythema. There is diffuse tenderness to palpation right calf. No medial thigh tenderness. No palpable cord. Neurovascular intact distally with full range of motion at knee and ankle. Palpable dorsalis pedis pulse. Const Vital Signs: 06/11/24 08:29 06/11/24 10:06 Temperature 98 F Temperature Source Oral Pulse Rate 78 59 L Respiratory Rate 18 18 Blood Pressure 176/85 H 152/70 H Blood Pressure Mean 115 97 Pulse Ox 100 98 Oxygen Delivery Method Room Air Room Air MDM MDM MDM Narrative Medical decision making narrative: I have low suspicion for DVT and think she is probably having more of a sciatica problem. She has already been prescribed prednisone and a muscle relaxer per [facility]. As she is here for rule out DVT, ultrasound was ordered of the right lower extremity. Patient requested analgesia for her sciatica pain. She has not had Aleve since yesterday evening so she was given naproxen 500 mg orally here. I reviewed the radiology report/initial report of the ultrasound of the right lower extremity and there is no evidence of DVT. At this point in time, if she can be discharged to take her medications for her sciatica and follow-up with her primary care provider. Return instructions to the emergency department were reviewed. Disposition is discharged home in stable condition. History & Record Review Discussion w/independent historian: Patient Discharge Plan Triage Chief Complaint: Back ED Provider: Art Thomas Dx/Rx/DC Orders Clinical Impression: Sciatica, Leg pain, right Instructions: ED Sciatica Prescriptions: No Action ibuprofen [Advil] 100 mg tablet 100 mg PO PRN PRN (Reason: Pain) clobetasol 0.05 % cream 1 applic topical DAILY triamcinolone acetonide 0.1 % cream 1 applic topical DAILY PRN cetirizine [Zyrtec] 10 mg tablet 10 mg PO DAILY PRN cyclobenzaprine 7.5 mg tablet 7.5 mg PO QHS PRN (Reason: muscle spasm) Qty: 20 0RF prednisone 20 mg tablet 40 mg PO DAILY Qty: 10 0RF zinc 50 mg Tablet 50 mg PO DAILY Centrum Silver Women 8 mg iron-400 mcg-300 mcg Tablet 1 tab PO DAILY sumatriptan succinate 100 mg tablet See Rx Instructions .ROUTE .COMPLEX Qty: 9 0RF Dose Instruction: TAKE 1 TABLET BY MOUTH NEEDED FOR MIGRAINES. Rx Instructions: TAKE 1 TABLET BY MOUTH NEEDED FOR MIGRAINES. venlafaxine 75 mg capsule,extended release 24hr 75 mg PO DAILY Qty: 90 3RF Primary Care Provider: Sherri Cooper Referrals: Sherri Cooper, [employer]END[employer]-C [Primary Care Provider] - 3-5 Days if not improving Print Language: French Disposition Disposition: Home, Self Care
[2024-06-11] MEDS: Naproxen 500 MG Tablet PO (10:02)
[2024-06-11 10:06] VITALS: BP 152/70; PULSE 59; RESP 18; O2SAT 98
[2024-06-11 10:20] VITALS: BP 152/78; PULSE 62; RESP 18; TEMP 36.7; O2SAT 100
== END 2024-06-11 10:21 | disposition home or self-care (01) ==
PROVIDERS: Emergency Provider Emergency Medicine; PCP Nurse Practitioner Family; Visit Provider Emergency Medicine
DX: M79.604 Pain in right leg (principal); M54.30 Sciatica, unspecified side; F32.A Depression, unspecified; Z79.899 Other long term (current) drug therapy; G43.909 Migraine, unspecified, not intractable, without status migrainosus; Z90.49 Acquired absence of other specified parts of digestive tract
CPT/HCPCS: 93971; 99282

== ENCOUNTER → 2024-09-19 | Outpatient (CLI) | payer OTHER, SELFPAY ==
[2024-09-19 12:34] LABS: Absolute Lymphocyte Count 1.51 X10^3/uL (0.83-4.51); Absolute Neutrophil Count 5.1 X10^3/uL (2.0-7.7); Hematocrit 38.8 % (37-47); Hemoglobin 12.2 g/dL (12.0-15.0); Lymphocyte # 1.51 X10^3/ul (0.83-4.51); Lymphocyte % 21.3 % (19-41); Mean Corp Hgb Conc 31.4 g/dL (32-36); Mean Corpuscular Hgb 27.9 pg (27.0-32.0); Mean Corpuscular Volume 88.8 fL (81-99); Mean Platelet Vol. 11.4 fl (6.2-12.0); Monocyte# 0.43 X10^3/uL; Monocyte% 6.1 % (0-10); NRBC Flagged by Analyzer 0 % (0-5); Neutrophil # 5.13 X10^3/uL (2.7-7.7); Neutrophil % 72.2 % (47-70); Platelet Count 260 K/mm3 (150-450); RBC Distribution Width CV 15.1 % (11.6-14.6); RBC Distribution Width SD 49.6 fl (35.1-43.9); Red Blood Count 4.37 M/mm3 (4.2-5.4); White Blood Count 7.1 K/mm3 (4.4-11.0)
[2024-09-19 13:09] LABS: ALB/GLOB Ratio 0.8 RATIO (0.9-2.4); AST(SGOT) 14 U/L (15-37); Alanine Aminotransfer ALT/SGPT 23 U/L (13-56); Albumin, Serum 3.4 g/dL (3.2-5.0); Alkaline Phosphatase 84 U/L (45-117); Anion Gap 4 (5-15); BUN 21 mg/dL (7-18); BUN/Creat Ratio 24.9 RATIO (10-20); Calcium,Total 9.4 mg/dL (8.5-10.1); Chloride 110 mmol/L (98-107); Cholesterol 173 mg/dL (200); Creatinine, Serum 0.84 mg/dL (0.55-1.02); EST Glomerular Filtration Rate 73 mL/min (>60); Est Glom Filt Rate - Afr Amer 88 mL/min (>60); Ferritin 140 ng/mL (8-252); Glucose 116 mg/dL (74-106); High Density Lipoprotein 47 mg/dL; Iron 49 ug/dL (50-170); Potassium 4.4 mmol/L (3.5-5.1); Protein, Total 7.4 g/dL (6.4-8.2); Sodium Level 141 mmol/L (136-145); T4 Free Direct 0.83 ng/dL (0.76-1.46); Triglycerides 78 mg/dL; Very Low Density Lipoprotein 16 mg/dL (5-40)
== END | disposition home or self-care (01) ==
LOC: BFHLAB 08:39
PROVIDERS: PCP Nurse Practitioner Family; Referring Provider Nurse Practitioner Family; Visit Provider Nurse Practitioner Family
DX: Z00.01 Encounter for general adult medical examination with abnormal findings (principal); D64.9 Anemia, unspecified; Z83.49 Family history of other endocrine, nutritional and metabolic diseases
CPT/HCPCS: 36415; 80053; 80061; 82728; 83540; 84439; 84443; 85025

== ENCOUNTER → 2024-11-01 | Outpatient (CLI) | payer OTHER, SELFPAY ==
--- NOTE | 2024-11-01 07:34 | BI_ITS ---
MAMMOGRAPHY - BILATERAL SCREENING REASON FOR EXAM: Female, 64 years old. Routine annual screening examination. PERTINENT HISTORY: Grandmother with breast cancer. TECHNIQUE: Digital bilateral breast keri (3D mammographic acquisition) in the CC and MLO projections. 2-D mediolateral oblique (MLO) and craniocaudad (CC) views of both breasts were obtained. CAD: Full Field Digital Mammography with Computer Added Detection was performed. COMPARISON: Comparison is made with prior study dated October 29, 2023 and October 24, 2022 FINDINGS: Breast Composition: The breasts are almost entirely fatty. There are no dominant masses or suspicious calcifications. No other significant abnormalities are identified. There has been no significant change since the prior study. BI/SCRN MAMM (CAD)W/KERI BILAT IMPRESSION: Stable bilateral screening mammogram. Yearly follow-up mammogram recommended. (A) ASSESSMENT CATEGORY: BIRADS Category 1: Negative. A letter regarding these results will be sent to the patient by the facility within 30 days. Approximately 10% of breast cancers are not detected by mammography. A normal mammogram should not delay biopsy of a clinically suspicious abnormality. [id number] Electronically Signed: Wally Albrecht MD at 8:52 EST ,
== END | disposition home or self-care (01) ==
LOC: OPBI 07:33
PROVIDERS: PCP Nurse Practitioner Family; Referring Provider Obstetrics & Gynecology; Visit Provider Obstetrics & Gynecology
DX: Z12.31 Encounter for screening mammogram for malignant neoplasm of breast (principal); Z80.3 Family history of malignant neoplasm of breast

== ENCOUNTER → 2025-09-26 | Outpatient (CLI) | payer OTHER, SELFPAY ==
[2025-09-26 11:03] LABS: Hematocrit 42.4 % (37-47); Hemoglobin 13.3 g/dL (12.0-15.0); Immature Granulocytes Count 0.020 X10^3/uL (0.0-0.0); Mean Corp Hgb Conc 31.4 g/dL (32-36); Mean Corpuscular Volume 88.3 fL (81-99); Mean Platelet Vol. 10.9 fl (6.2-12.0); NRBC Flagged by Analyzer 0 % (0-5); Platelet Count 284 K/mm3 (150-450); RBC Distribution Width CV 14.9 % (11.6-14.6); RBC Distribution Width SD 48.2 fl (35.1-43.9); Red Blood Count 4.80 M/mm3 (4.2-5.4); White Blood Count 7.6 K/mm3 (4.4-11.0)
[2025-09-26 11:33] LABS: AST(SGOT) 19 U/L (<=31); Alanine Aminotransfer ALT/SGPT 14 U/L (<=34); Albumin, Serum 4.3 g/dL (3.4-4.8); Alkaline Phosphatase 88 U/L (35-104); Anion Gap 10 (5-15); BUN 17 mg/dL (4-19); BUN/Creat Ratio 15.8 RATIO (10-20); Calcium,Total 9.9 mg/dL (7.6-11.0); Carbon Dioxide 27.6 mmol/L (21.0-32.0); Chloride 101 mmol/L (98-108); Cholesterol 157 mg/dL (<=200); Ferritin 292 ng/mL (22-378); Globulin 3.5 g/dL (2.2-4.2); Glucose 122 mg/dL (70-99); Low Density Lipoprotein Calc. 99 mg/dL; Potassium 4.7 mmol/L (3.3-5.1); Triglycerides 75 mg/dL; Very Low Density Lipoprotein 15 mg/dL (5-40); cholesterol:hdl ratio screen 3.58
[2025-09-26 12:07] LABS: Iron 76 ug/dL (50-170)
== END | disposition home or self-care (01) ==
LOC: MTLAB 09:28
PROVIDERS: PCP Nurse Practitioner Family; Referring Provider Nurse Practitioner Family; Visit Provider Nurse Practitioner Family
DX: Z00.01 Encounter for general adult medical examination with abnormal findings (principal); Z83.49 Family history of other endocrine, nutritional and metabolic diseases; D64.9 Anemia, unspecified
CPT/HCPCS: 36415; 80053; 80061; 82728; 83540; 84439; 84443; 85025